=== PATIENT | female | born 1985 | race American Indian/Alaskan Native ===

== ENCOUNTER 2018-11-30 22:51 | Inpatient (IN) | payer OTHER ==
[2018-12-01 00:25] LABS: BUN/Creatinine Ratio 14; Blood Urea Nitrogen 15 mg/dL (7-17); Calcium 8.8 mg/dL (8.4-10.2)
[2018-12-01 00:26] LABS: Alanine Aminotransferase 97 units/L (7-56); Albumin 4.2 g/dL (3.9-5); Hemolysis Index 0
[2018-12-01] MEDS ORDERED: SODIUM CHLORIDE 0.9% 500 ML 500 ML ONE ×2 (00:53→09:26)
[2018-12-01 01:21] LABS: Red Blood Count 0.86 M/mm3 (3.65-5.03)
[2018-12-01 01:25] LABS: Hematocrit 4.8 % (30.3-42.9); Hemoglobin 1.4 gm/dl (10.1-14.3); Mean Corpuscular HGB Conc 29 % (30-34); Mean Corpuscular Volume 55 fl (79-97); Red Cell Distribution Width 21.5 % (13.2-15.2)
[2018-12-01 01:26] LABS: Platelet Count 168 K/mm3 (140-440)
[2018-12-01] MEDS ORDERED: SODIUM CHLORIDE 0.9% 500 ML 500 ML IV ONE ×2 (01:45→09:30)
[2018-12-01 02:15] LABS: Bacteria,Urine 2+ /HPF (Negative); Bilirubin,Urine NEG (Negative); Blood,Urine LG (Negative); Color,Urine Yellow (Yellow); Mucus,Urine FEW /HPF; Protein,Urine >500 mg/dL (Negative); Urobilinogen,Urine < 2.0 mg/dL (<2.0)
[2018-12-01 02:19] LABS: HCG Qualitative,Urine Negative (Negative)
--- NOTE | 2018-12-01 02:21 | Emergency Department Report ---
- General Chief complaint: Weakness Stated complaint: WEAKNESS/DIZZINESS/FEVER Time Seen by Provider: 11/30/18 23:38 Source: patient Mode of arrival: Ambulatory Limitations: No Limitations - History of Present Illness Initial comments: 33-year-old female with generalized weakness, worsening over the last 3 days. Patient only reports history of anemia, states has chronically heavy menstrual periods. Patient has been given prescriptions for iron pills previously, but has been noncompliant with the medication. Patient states she has never required a transfusion. However, patient and report that she has not been to a doctor in approx 11 yrs. The last time was when she gave to her son. Patient reports generalized weakness, shortness of breath with exertion, ice pica, dizziness. She states she has been having these symptoms for " a while" but became worse over the last few days. Patient currently on her period, normally has very heavy menstrual periods. Patient denies fever, abdominal pain and diarrhea. MD Complaint: generalized weakness, lack of energy -: days(s) (3) Location: generalized Severity: severe Consistency: constant Improves with: none Worsens with: none Associated Symptoms: loss of appetite, nausea/vomiting, shortness of breath. denies: chest pain, dark stools - Related Data Home Medications Medication Instructions Recorded Confirmed Last Taken No Known Home Medications [No 12/01/18 12/01/18 Unknown Reported Home Medications] Allergies Allergy/AdvReac Type Severity Reaction Status Date / Time amoxicillin Allergy Hives Verified 11/30/18 22:58 ED Review of Systems ROS: Stated complaint: WEAKNESS/DIZZINESS/FEVER Other details as noted in HPI Comment: All other systems reviewed and negative Constitutional: denies: chills, fever Respiratory: shortness of breath Cardiovascular: denies: chest pain Gastrointestinal: nausea, vomiting. denies: diarrhea, melena, hematochezia Genitourinary: abnormal menses ED Past Medical Hx - Past Medical History Previous Medical History?: Yes Additional medical history: anemia - Social History Smoking Status: Current Every Day Smoker - Medications Home Medications: Home Medications Medication Instructions Recorded Confirmed Last Taken Type No Known Home Medications [No 12/01/18 12/01/18 Unknown History Reported Home Medications] ED Physical Exam - General Limitations: No Limitations General appearance: alert, in no apparent distress - Head Head exam: Present: atraumatic, normocephalic - Eye Eye exam: Present: normal appearance - ENT ENT exam: Present: mucous membranes dry, other (tongue is pale) - Respiratory Respiratory exam: Present: normal lung sounds bilaterally. Absent: respiratory distress - Cardiovascular Cardiovascular Exam: Present: normal rhythm, tachycardia - GI/Abdominal GI/Abdominal exam: Present: soft, mass (firm mass palpated in suprapubic area, possible fibroid uterus). Absent: distended, tenderness - Extremities Exam Extremities exam: Present: normal inspection - Neurological Exam Neurological exam: Present: alert, oriented X3, CN II-XII intact. Absent: motor sensory deficit - Psychiatric Psychiatric exam: Present: normal affect, normal mood - Skin Skin exam: Present: warm, dry, pallor ED Course Vital Signs 11/30/18 11/30/18 12/01/18 23:08 23:52 00:00 Temperature 97.9 F Pulse Rate 113 H 99 H Respiratory 16 24 Rate Blood Pressure 90/30 92/33 110/45 Blood Pressure [Left] O2 Sat by Pulse 100 100 Oximetry 12/01/18 12/01/18 12/01/18 00:15 00:30 00:46 Temperature Pulse Rate 98 H 100 H 99 H Respiratory 22 14 25 H Rate Blood Pressure 82/45 82/45 105/47 Blood Pressure [Left] O2 Sat by Pulse 100 100 Oximetry 12/01/18 12/01/18 12/01/18 01:00 01:18 02:00 Temperature Pulse Rate 99 H Respiratory 22 18 Rate Blood Pressure 93/46 100/35 Blood Pressure [Left] O2 Sat by Pulse 95 98 Oximetry 12/01/18 12/01/18 12/01/18 02:15 02:20 02:30 Temperature 98.2 F Pulse Rate 93 H 99 H 96 H Respiratory 25 H 20 24 Rate Blood Pressure 98/43 107/59 107/59 Blood Pressure [Left] O2 Sat by Pulse 99 100 Oximetry 12/01/18 12/01/18 12/01/18 02:39 02:45 03:00 Temperature 98.2 F 98.2 F 98.5 F Pulse Rate 97 H 104 H 93 H Respiratory 12 20 22 Rate Blood Pressure 107/59 99/52 Blood Pressure 107/59 [Left] O2 Sat by Pulse 100 100 Oximetry 12/01/18 12/01/18 12/01/18 03:15 03:30 03:45 Temperature Pulse Rate 87 85 90 Respiratory 25 H 16 18 Rate Blood Pressure 97/57 102/55 92/48 Blood Pressure [Left] O2 Sat by Pulse 98 100 100 Oximetry 12/01/18 12/01/18 12/01/18 04:00 04:15 04:30 Temperature Pulse Rate 93 H 94 H 93 H Respiratory 14 18 22 Rate Blood Pressure 96/43 108/56 107/52 Blood Pressure [Left] O2 Sat by Pulse 100 100 100 Oximetry 12/01/18 12/01/18 12/01/18 04:40 04:45 05:00 Temperature 98.5 F Pulse Rate 94 H 93 H Respiratory 18 25 H Rate Blood Pressure 106/60 108/55 Blood Pressure [Left] O2 Sat by Pulse 100 95 Oximetry 12/01/18 12/01/18 12/01/18 05:15 05:30 05:45 Temperature Pulse Rate 90 85 85 Respiratory 16 12 12 Rate Blood Pressure 105/54 105/63 109/54 Blood Pressure [Left] O2 Sat by Pulse 99 100 100 Oximetry 12/01/18 12/01/18 12/01/18 06:00 06:15 06:26 Temperature 98.5 F Pulse Rate 82 80 80 Respiratory 24 15 15 Rate Blood Pressure 101/62 101/62 101/62 Blood Pressure [Left] O2 Sat by Pulse 100 100 100 Oximetry 12/01/18 12/01/18 12/01/18 06:31 07:25 07:30 Temperature Pulse Rate 86 81 75 Respiratory 21 15 25 H Rate Blood Pressure 108/49 108/49 103/55 Blood Pressure [Left] O2 Sat by Pulse 99 99 100 Oximetry 12/01/18 12/01/18 12/01/18 07:41 07:51 08:00 Temperature Pulse Rate 102 H 76 79 Respiratory 27 H 27 H 16 Rate Blood Pressure 103/55 115/62 117/68 Blood Pressure [Left] O2 Sat by Pulse 96 99 99 Oximetry 12/01/18 12/01/18 12/01/18 08:11 08:21 08:30 Temperature Pulse Rate 78 87 76 Respiratory 14 15 25 H Rate Blood Pressure 117/68 103/50 104/50 Blood Pressure [Left] O2 Sat by Pulse 100 93 99 Oximetry 12/01/18 12/01/18 12/01/18 08:41 08:51 09:00 Temperature Pulse Rate 78 73 72 Respiratory 19 15 18 Rate Blood Pressure 104/50 104/50 101/59 Blood Pressure [Left] O2 Sat by Pulse 100 100 100 Oximetry 12/01/18 12/01/18 12/01/18 09:11 09:21 09:30 Temperature Pulse Rate 71 82 70 Respiratory 22 20 16 Rate Blood Pressure 101/59 106/71 108/66 Blood Pressure [Left] O2 Sat by Pulse 100 96 Oximetry 12/01/18 12/01/18 12/01/18 09:41 09:49 09:50 Temperature 98.2 F Pulse Rate 77 71 74 Respiratory 12 13 14 Rate Blood Pressure 101/59 136/83 136/83 Blood Pressure [Left] O2 Sat by Pulse 96 100 97 Oximetry 12/01/18 12/01/18 12/01/18 10:01 10:04 10:10 Temperature 98.3 F Pulse Rate 72 82 75 Respiratory 15 14 13 Rate Blood Pressure 141/64 141/64 101/59 Blood Pressure [Left] O2 Sat by Pulse 100 100 100 Oximetry 12/01/18 12/01/18 12/01/18 10:21 10:30 10:41 Temperature Pulse Rate 72 74 73 Respiratory 19 19 12 Rate Blood Pressure 146/74 138/70 146/74 Blood Pressure [Left] O2 Sat by Pulse 100 100 100 Oximetry 12/01/18 12/01/18 12/01/18 10:51 11:09 11:11 Temperature Pulse Rate 72 87 84 Respiratory 18 17 Rate Blood Pressure 139/75 139/75 139/75 Blood Pressure [Left] O2 Sat by Pulse 100 94 Oximetry 12/01/18 11:20 Temperature Pulse Rate 71 Respiratory 21 Rate Blood Pressure 115/78 Blood Pressure [Left] O2 Sat by Pulse Oximetry ED Medical Decision Making - Lab Data Result diagrams: 12/02/18 09:34 12/02/18 05:05 - EKG Data -: EKG Interpreted by Ok EKG shows normal: sinus rhythm, axis, intervals, QRS complexes, ST-T waves Rate: tachycardia - EKG Data Interpretation: other (inferolateral T wave inversions) - Radiology Data Radiology results: report reviewed, image reviewed - Medical Decision Making 33 yo F w/ ongoing generalized weakness. Appears frail, pale. Blood pressure is low. On blood draw, blood appearance is thin and watery. Hemoglobin repeated multiple times, and found to be 1.3. Patient reports dysfunctional uterine bleeding w/ prolonged and heavy menstrual periods. On exam, patient have likely fibroid uterus. Blood transfusion ordered. Pt will be admitted to hospitalist, Dr Berkowitz. - Differential Diagnosis anemia, infection, uterine fibroids Critical Care Time: Yes Critical care time in (mins) excluding proc time.: 35 Critical care attestation.: If time is entered above; I have spent that time in minutes in the direct care of this critically ill patient, excluding procedure time. Critical Care Time: 35 minutes ED Disposition Clinical Impression: Iron deficiency anemia, Menorrhagia, Hypotension Disposition: -09 OP ADMIT IP TO THIS HOSP Is pt being admited?: Yes Condition: Stable Time of Disposition: 02:35
[2018-12-01 02:29] LABS: Hemoglobin 1.3 gm/dl (10.1-14.3); Red Blood Count 0.84 M/mm3 (3.65-5.03)
[2018-12-01 02:30] LABS: Hematocrit 4.8 % (30.3-42.9); Mean Corpuscular HGB Conc 28 % (30-34); Mean Corpuscular Volume 58 fl (79-97); Platelet Count 151 K/mm3 (140-440); Red Cell Distribution Width 21.6 % (13.2-15.2)
[2018-12-01] MEDS ORDERED: ONDANSETRON 4 MG/2 ML INJ IV PRN (02:59)
--- NOTE | 2018-12-01 03:07 | XRay Report ---
CHEST 1 VIEW 12/01/2018 2:38 AM INDICATION / CLINICAL INFORMATION: weakness, sob. COMPARISON: None available. FINDINGS: SUPPORT DEVICES: None. HEART / MEDIASTINUM: Borderline cardiomegaly. LUNGS / PLEURA: No significant pulmonary or pleural abnormality. No pneumothorax. ADDITIONAL FINDINGS: No significant additional findings. IMPRESSION: 1. Borderline cardiomegaly without acute pulmonary abnormality. Signer Name: Hai Erazo MD Signed: 12/01/2018 3:03 AM Workstation Name: [id number]
--- NOTE | 2018-12-01 03:15 | History and Physical Report ---
History of Present Illness Date of examination: 12/01/18 Date of admission: 12/01/18 Chief complaint: Generalized weakness History of present illness: 33-year-old -[place] female who is an ongoing smoker with history of menorrhagia who presents to [facility] ED with complaints of worsening generalized weakness over the past 3 days. Pt states that she is currently on her menstrual cycle, and it usually last for 2 weeks. While on her period she complains of heavy bleeding and the passing of large clots. She admits to taking iron supplements in the past, but has't seen a medical provider in over 11 years. She admits to increased fatigue, pending the past 3 days in bed (with the majority of the time spent sleeping), dizziness, shortness of breath with exertion, ice pica, nausea, and emesis x1. Past History Past Medical History: anemia, other (menorrhagia) Past Surgical History: No surgical history Social history: , Lives alone, smoking (current everyday smoker) Family history: no significant family history Medications and Allergies Allergies Allergy/AdvReac Type Severity Reaction Status Date / Time amoxicillin Allergy Hives Verified 11/30/18 22:58 Active Meds: Active Medications Acetaminophen (Tylenol) 650 mg PO Q4H PRN PRN Reason: Pain MILD(1-3)/Fever >100.5/ANDREWS Docusate Sodium (Colace) 100 mg PO BID MARTHA Ferrous Sulfate (Feosol) 325 mg PO QDAY [facility] Ferric Sodium Gluconate Complex 250 mg/ Sodium Chloride 120 mls @ 100 mls/hr IV ONCE ONE Stop: 12/01/18 04:01 Sodium Chloride (Nacl 0.9% 1000 Ml) 1,000 mls @ 75 mls/hr IV DIRECT MARTHA Levofloxacin/Dextrose (Levaquin 500mg/100ml) 500 mg in 100 mls @ 100 mls/hr IV Q24HR MARTHA; Protocol Stop: 12/04/18 09:59 Nicotine (Habitrol) 14 mg TD QDAY MARTHA Ondansetron HCl (Zofran) 4 mg IV Q8H PRN PRN Reason: Nausea And Vomiting Sodium Chloride (Sodium Chloride Flush Syringe 10 Ml) 10 ml IV BID MARTHA Sodium Chloride (Sodium Chloride Flush Syringe 10 Ml) 10 ml IV PRN PRN PRN Reason: LINE FLUSH Review of Systems All systems: negative Constitutional: fatigue, other (ice pica) Cardiovascular: shortness of breath Genitourinary Female: menorrhagia (with passing of large clots) Menstruation: currently menstrual, period heavy, menses 8 or > days Neurological: other (dizziness) Exam - Constitutional Vitals: Temp Pulse Resp BP Pulse Ox 98.2 F 104 H 20 107/59 100 12/01/18 02:45 12/01/18 02:45 12/01/18 02:45 12/01/18 02:45 12/01/18 02:39 Results - Labs CBC & Chem 7: 12/01/18 01:53 11/30/18 23:36 Labs: Laboratory Last Values WBC 5.1 K/mm3 (4.5-11.0) 12/01/18 01:53 RBC 0.84 M/mm3 (3.65-5.03) L 12/01/18 01:53 Hgb 1.3 gm/dl (10.1-14.3) L* 12/01/18 01:53 Hct 4.8 % (30.3-42.9) L* 12/01/18 01:53 MCV 58 fl (79-97) L 12/01/18 01:53 MCH 16 pg (28-32) L 12/01/18 01:53 MCHC 28 % (30-34) L 12/01/18 01:53 RDW 21.6 % (13.2-15.2) H 12/01/18 01:53 Plt Count 151 K/mm3 (140-440) 12/01/18 01:53 Lymph % (Auto) [employer] 12/01/18 00:32 [place] % (Auto) Juvenile [employer]ation Officer 12/01/18 00:32 Eos % (Auto) Juvenile Probation Officer 12/01/18 00:32 Baso % (Auto) Juvenile Probation Officer 12/01/18 00:32 Lymph # Juvenile Probation Officer 12/01/18 00:32 [place] # Juvenile Probation Officer 12/01/18 00:32 Eos # Juvenile Probation Officer 12/01/18 00:32 Baso # Juvenile Probation Officer 12/01/18 00:32 Seg Neutrophils % Juvenile Probation Officer 12/01/18 00:32 Seg Neutrophils # Juvenile Probation Officer 12/01/18 00:32 Sodium 132 mmol/L (137-145) L 11/30/18 23:36 Potassium 3.9 mmol/L (3.6-5.0) 11/30/18 23:36 Chloride 97.1 mmol/L (98-107) L 11/30/18 23:36 Carbon Dioxide 13 mmol/L (22-30) L 11/30/18 23:36 26 mmol/L 11/30/18 23:36 BUN 15 mg/dL (7-17) 11/30/18 23:36 1.1 mg/dL (0.7-1.2) 11/30/18 23:36 Estimated GFR > 60 ml/min 11/30/18 23:36 14 % 11/30/18 23:36 Glucose 105 mg/dL (65-100) H 11/30/18 23:36 Calcium 8.8 mg/dL (8.4-10.2) 11/30/18 23:36 Magnesium 3.00 mg/dL (1.7-2.3) H 11/30/18 23:36 0.90 mg/dL (0.1-1.2) 11/30/18 23:36 AST 127 units/L (5-40) H 11/30/18 23:36 ALT 97 units/L (7-56) H 11/30/18 23:36 94 units/L (35-129) 11/30/18 23:36 7.3 g/dL (6.3-8.2) 11/30/18 23:36 4.2 g/dL (3.9-5) 11/30/18 23:36 1.4 % 11/30/18 23:36 HCG, Qual Negative (Negative) 12/01/18 01:22 Yellow (Yellow) 12/01/18 01:34 Slightly-cloudy (Clear) 12/01/18 01:34 5.0 (5.0-7.0) 12/01/18 01:34 Ur Specific [place] 1.012 (1.003-1.030) 12/01/18 01:34 >500 mg/dL (Negative) 12/01/18 01:34 Neg mg/dL (Negative) 12/01/18 01:34 Neg mg/dL (Negative) 12/01/18 01:34 Lg (Negative) 12/01/18 01:34 Neg (Negative) 12/01/18 01:34 Neg (Negative) 12/01/18 01:34 < 2.0 mg/dL (<2.0) 12/01/18 01:34 Ur Leukocyte Esterase Neg (Negative) 12/01/18 01:34 13.0 /HPF (0.0-6.0) H 12/01/18 01:34 61.0 /HPF (0.0-6.0) 12/01/18 01:34 U Epithel Cells (Auto) 2.0 /HPF (0-13.0) 12/01/18 01:34 2+ /HPF (Negative) 12/01/18 01:34 Few /HPF 12/01/18 01:34 Urine HCG, Qual Negative (Negative) 12/01/18 01:34 Blood Type B POSITIVE 12/01/18 Unknown Antibody Screen Negative 12/01/18 Unknown Crossmatch See Detail 12/01/18 Unknown - Imaging and Cardiology Imaging and Cardiology: CXR: FINDINGS: SUPPORT DEVICES: None. HEART / MEDIASTINUM: Borderline cardiomegaly. LUNGS / PLEURA: No significant pulmonary or pleural abnormality. No pneumothorax. ADDITIONAL FINDINGS: No significant additional findings. IMPRESSION: 1. Borderline cardiomegaly without acute pulmonary abnormality. US Pelvis/ Transvaginal: FINDINGS: UTERUS: Present. - Size in cm (if present): 13.0 x 7.8 x 8.8. - E ndometrial Complex (if present): No significant abnormality.. Thickness in cm (if measured) = 0.5 - Mass lesions: There is a 6.8 x 5.2 x 6.0 cm posterior fibroid and a 5.1 x 4.2 x 4.7 cm anterior fibroid in the uterine fundus. - Additional findings: None. RIGHT ADNEXA: There is a 4.0 cm simple cyst in the right ovary, probable dominant follicle not requiring follow-up. Normal color Doppler blood flow. LEFT ADNEXA: The left ovary was not definitely visualized. There is no left adnexal mass. URINARY BLADDER: No significant abnormality. FREE FLUID: None. ADDITIONAL FINDINGS: None. IMPRESSION: 1. Multiple uterine fibroids. 2. Normal Doppler flow in the right ovary. 3. The left ovary was not definitely visualized but there is no left adnexal mass lesion. Assessment and Plan Assessment and plan: 33-year-old -[place] female who is an ongoing smoker with history of menorrhagia who presents to [facility] ED with complaints of menorrhagia and worsening generalized weakness over the past 3 days. Anemia -Severe -Hemoglobin on admission 1.3 -Receiving transfusion -No signs/symptoms of active bleeding -Continue to monitor hemoglobin -Transfuse as needed -Hematology consulted Urinary tract infection -Urine WBC >8 -Urine culture pending -Start on IV Abx Elevated Liver Enzymes -Likely due to anemia -Will continue to monitor Hx menorrhagia -Currently on menstrual cycle - Menstrual cycle lasting 10-14 days (over the past 7-8 months) -US pelvis/ transvaginal showed Multiple uterine fibroids; Normal Doppler flow in the right ovary; The left ovary was not definitely visualized but there is no left adnexal mass lesion. -CARDROOM ATTENDANT consult pending Hyponatremia -Na on admission 132 -Slowly correct Na with IVF -Continue to monitor replete prn Tobacco abuse -Current every day smoker -Counseled for cessation -Nicotine patch when necessary DVT PPX -On SCD's Advance Directives: No VTE prophylaxis?: Mechanical Plan of care discussed with patient/family: Yes
--- NOTE | 2018-12-01 03:35 | Ultrasound Report ---
ULTRASOUND PELVIS INDICATION / CLINICAL INFORMATION: vag bleeding. TECHNIQUE: Transabdominal. Duplex Color Doppler used: Yes. COMPARISON: None available FINDINGS: UTERUS: Present. - Size in cm (if present): 13.0 x 7.8 x 8.8. - Endometrial Complex (if present): No significant abnormality.. Thickness in cm (if measured) = 0.5 - Mass lesions: There is a 6.8 x 5.2 x 6.0 cm posterior fibroid and a 5.1 x 4.2 x 4.7 cm anterior fib roid in the uterine fundus. - Additional findings: None. RIGHT ADNEXA: There is a 4.0 cm simple cyst in the right ovary, probable dominant follicle not requir ing follow-up. Normal color Doppler blood flow. LEFT ADNEXA: The left ovary was not definitely visualized. There is no left adnexal mass. URINARY BLADDER: No significant abnormality. FREE FLUID: None. ADDITIONAL FINDINGS: None. IMPRESSION: 1. Multiple uterine fibroids. 2. Normal Doppler flow in the right ovary. 3. The left ovary was not definitely visualized but there is no left adnexal mass lesion. Signer Name: Hai Erazo MD Signed: 12/01/2018 3:31 AM Workstation Name: [id number]
[2018-12-01] MEDS ORDERED: SODIUM FERRIC GLUCON/SUCRO 250 MG in SODIUM CHLORIDE 0.9% 100 ML IV ONE (04:00)
[2018-12-01 06:07] LABS: Eosinophils % (Manual) 0 % (0.0-4.3); Total Cells Counted 100
[2018-12-01 06:08] LABS: Anisocytosis 1+; Hypochromasia 3+; Large Platelets Few; Platelet Estimate Consistent w Auto; Poikilocytosis 1+; Schistocytes Few
[2018-12-01 06:14] LABS: Anisocytosis 1+; Basophils % (Manual) 0 % (0.0-1.8); Eosinophils % (Manual) 0 % (0.0-4.3); Hypochromasia 3+; Platelet Estimate Consistent w Auto; Poikilocytosis Few; Schistocytes 1+; Total Cells Counted 100
--- NOTE | 2018-12-01 08:33 | Event Note ---
Date: 12/01/18 [id number]
[2018-12-01 09:33] LABS: % Iron Saturation 32.12 %
[2018-12-01 09:35] LABS: Iron 157 ug/dL (37-170); Total Iron Binding Capacity 482 mcg/dL (250-450)
[2018-12-01 10:40] LABS: Hematocrit 10.4 % (30.3-42.9); Hemoglobin 3.4 gm/dl (10.1-14.3)
[2018-12-01] MEDS: NICOTINE 14 MG/24 HR PATCH TD SCH (16:06)
[2018-12-01] MEDS: DOCUSATE SODIUM 100 MG CAP PO SCH ×2 (16:06→21:30)
[2018-12-01] MEDS: FERROUS SULFATE 325 MG TAB PO SCH (16:07)
[2018-12-01] MEDS: MULTIVITAMINS ,THERAPEUTIC TAB PO SCH (16:07)
--- NOTE | 2018-12-01 18:23 | Consultation ---
History of Present Illness - Reason for Consult Consult date: 12/01/18 menorrhagia - History of Present Illness Patient is a 33 year old female , LMP 2 weeks ago who was admitted early this AM for symptomatic anemia.She presented to the ER during the night complaining of shortness of breath, weakness, dizziness for 5 days. She says that she has been feeling like this for weeks now, but her symptoms got severe last night to the point where she could not stand up. She has not see any doctor in 11 years. She denies any chronic medical condition. Her initial H/H was 1.3/4.8 (at 1:30 am), repeat 1.2/4.8 (1:50 am). She was transfused 3 units of PRBCs. Current H/H: 3.4/10.4 (9 am). She is getting her 4th unit right now. She says that her period comes every 2 weeks and last about 2 weeks, and she has been bleeding almost every day. She has not seen a collar separator. Past medical history: denies. Past surgical history: C/section x 2. Allergy: PCN Social: + smoking, denies alcohol or grug abuse. 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 Obs Hx: C/section x 2, one for demise. ROS: as above. Exam: Chest: CTA B/L. Abdomen: soft, no tenderness. Pelvic: deferred. Pelvic sonogram: Uterus measures 13 x 8.8 x 7.8 cm, stripe 5 mm, mutiple myomae and the largest one measures 6.8 x 5.5 cm, right ovarian cyst 4 cm. Assessment/Plan: 1. Symptomatic anemia. Patient is being transfused to bring her Hb to a stable level. 2. Symptomatic myomae. Patient was told that she needs to follow up with fire investigation manager as soon as she is discharged home. She will need endometrial biopsy, then definitive treatment will be discussed with her. Please consult fire investigation manager as needed. Please have patient set up an appointment before going home at [phone]. Past History Past Medical History: anemia, other (menorrhagia) Past Surgical History: No surgical history Social history: , Lives alone, smoking (current everyday smoker) Family history: no significant family history Medications and Allergies Allergies Allergy/AdvReac Type Severity Reaction Status Date / Time amoxicillin Allergy Hives Verified 11/30/18 22:58 Home Medications Medication Instructions Recorded Confirmed Last Taken Type No Known Home Medications [No 12/01/18 12/01/18 Unknown History Reported Home Medications] Active Meds: Active Medications Acetaminophen (Tylenol) 650 mg PO Q4H PRN PRN Reason: Pain MILD(1-3)/Fever >100.5/ADNREWS Docusate Sodium (Colace) 100 mg PO BID ON LICENSE OF [facility] Last Admin: 12/01/18 16:06 Dose: 100 mg Documented by: Ferrous Sulfate (Feosol) 325 mg PO QDAY ON LICENSE OF [facility] Last Admin: 12/01/18 16:07 Dose: 325 mg Documented by: Sodium Chloride (Nacl 0.9% 1000 Ml) 1,000 mls @ 75 mls/hr IV DIRECT ON LICENSE OF [facility] Levofloxacin/Dextrose (Levaquin 500mg/100ml) 500 mg in 100 mls @ 100 mls/hr IV Q24HR ON LICENSE OF [facility]; Protocol Stop: 12/04/18 09:59 Multivitamins (Theragran Tab) 1 each PO QDAY ON LICENSE OF [facility] Last Admin: 12/01/18 16:07 Dose: 1 each Documented by: Nicotine (Habitrol) 14 mg TD QDAY ON LICENSE OF [facility] Last Admin: 12/01/18 16:06 Dose: 14 mg Documented by: Ondansetron HCl (Zofran) 4 mg IV Q8H PRN PRN Reason: Nausea And Vomiting Sodium Chloride (Sodium Chloride Flush Syringe 10 Ml) 10 ml IV BID ON LICENSE OF [facility] Sodium Chloride (Sodium Chloride Flush Syringe 10 Ml) 10 ml IV PRN PRN PRN Reason: LINE FLUSH Exam - Constitutional Vitals: Temp Pulse Resp BP Pulse Ox 97.7 F 69 19 103/59 100 12/01/18 16:51 12/01/18 16:51 12/01/18 16:51 12/01/18 17:10 12/01/18 16:51 Results - Labs CBC & Chem 7: 12/01/18 09:39 11/30/18 23:36 Labs: Abnormal lab results 11/30/18 12/01/18 12/01/18 Range/Units 23:36 00:32 01:34 RBC 0.86 L (3.65-5.03) M/mm3 Hgb 1.4 L* (10.1-14.3) gm/dl Hct 4.8 L* (30.3-42.9) % MCV 55 L (79-97) fl MCH 16 L (28-32) pg MCHC 29 L (30-34) % RDW 21.5 H (13.2-15.2) % Seg Neuts % (Manual) 84.0 H (40.0-70.0) % Lymphocytes % (Manual) 13.0 L (13.4-35.0) % Nucleated RBC % (0.0-0.9) % Lymphocytes # (Manual) 0.7 L (1.2-5.4) K/mm3 Sodium 132 L (137-145) mmol/L Chloride 97.1 L (98-107) mmol/L Carbon Dioxide 13 L (22-30) mmol/L Glucose 105 H (65-100) mg/dL Magnesium 3.00 H (1.7-2.3) mg/dL TIBC (250-450) mcg/dL Ferritin (13.0-400.0) ng/mL AST 127 H (5-40) units/L ALT 97 H (7-56) units/L Vitamin B12 (211-911) pg/mL Urine WBC (Auto) 13.0 H (0.0-6.0) /HPF Crossmatch 12/01/18 12/01/18 12/01/18 Range/Units 01:53 08:54 08:54 RBC 0.84 L (3.65-5.03) M/mm3 Hgb 1.3 L* (10.1-14.3) gm/dl Hct 4.8 L* (30.3-42.9) % MCV 58 L (79-97) fl MCH 16 L (28-32) pg MCHC 28 L (30-34) % RDW 21.6 H (13.2-15.2) % Seg Neuts % (Manual) 79.0 H (40.0-70.0) % Lymphocytes % (Manual) (13.4-35.0) % Nucleated RBC % 2.0 H (0.0-0.9) % Lymphocytes # (Manual) 1.0 L (1.2-5.4) K/mm3 Sodium (137-145) mmol/L Chloride (98-107) mmol/L Carbon Dioxide (22-30) mmol/L Glucose (65-100) mg/dL Magnesium (1.7-2.3) mg/dL TIBC 482 H 495 H (250-450) mcg/dL Ferritin (13.0-400.0) ng/mL AST (5-40) units/L ALT (7-56) units/L Vitamin B12 (211-911) pg/mL Urine WBC (Auto) (0.0-6.0) /HPF Crossmatch 12/01/18 12/01/18 12/01/18 Range/Units 08:54 08:54 09:39 RBC (3.65-5.03) M/mm3 Hgb 3.4 L* (10.1-14.3) gm/dl Hct 10.4 L* (30.3-42.9) % MCV (79-97) fl MCH (28-32) pg MCHC (30-34) % RDW (13.2-15.2) % Seg Neuts % (Manual) (40.0-70.0) % Lymphocytes % (Manual) (13.4-35.0) % Nucleated RBC % (0.0-0.9) % Lymphocytes # (Manual) (1.2-5.4) K/mm3 Sodium (137-145) mmol/L Chloride (98-107) mmol/L Carbon Dioxide (22-30) mmol/L Glucose (65-100) mg/dL Magnesium (1.7-2.3) mg/dL TIBC (250-450) mcg/dL Ferritin 2.9 L (13.0-400.0) ng/mL AST (5-40) units/L ALT (7-56) units/L Vitamin B12 1048 H (211-911) pg/mL Urine WBC (Auto) (0.0-6.0) /HPF Crossmatch 12/01/18 Range/Units Unknown RBC (3.65-5.03) M/mm3 Hgb (10.1-14.3) gm/dl Hct (30.3-42.9) % MCV (79-97) fl MCH (28-32) pg MCHC (30-34) % RDW (13.2-15.2) % Seg Neuts % (Manual) (40.0-70.0) % Lymphocytes % (Manual) (13.4-35.0) % Nucleated RBC % (0.0-0.9) % Lymphocytes # (Manual) (1.2-5.4) K/mm3 Sodium (137-145) mmol/L Chloride (98-107) mmol/L Carbon Dioxide (22-30) mmol/L Glucose (65-100) mg/dL Magnesium (1.7-2.3) mg/dL TIBC (250-450) mcg/dL Ferritin (13.0-400.0) ng/mL AST (5-40) units/L ALT (7-56) units/L Vitamin B12 (211-911) pg/mL Urine WBC (Auto) (0.0-6.0) /HPF Crossmatch See Detail
[2018-12-01] MEDS: ACETAMINOPHEN 325 MG TAB PO PRN (21:11)
--- NOTE | 2018-12-01 22:08 | Consultation ---
REFERRED BY: Dr. Berkowitz. REASON FOR CONSULTATION: Severe anemia. HISTORY OF PRESENT ILLNESS: I saw the patient, a 33-year-old female in the medical floor. The patient has history of anemia. She has not been to a physician for more than 11 years. She has been having progressive weakness. She has heavy periods for many months. It lasted for 2 weeks. It has lots of clots. As she felt weakness, dizziness and has shortness of breath, she came to the hospital. Hemoglobin was found to be 1.3. Blood transfusion has been given. IV iron has been given. I have been asked to evaluate the patient for this. At this time, no headache, no visual disturbances, no ear discharge, no chest pain, no shortness of breath at rest, no vomiting. She has history of exertional shortness of breath and dizziness. No abdominal pain. No hematemesis. No hematochezia. History of alcohol use is present, history of smoking present. Advised to quit the same. As per the notes, she has a large fibroid. PAST MEDICAL HISTORY: Anemia. PAST SURGICAL HISTORY: None. SOCIAL HISTORY: , lives alone. History of smoking and alcohol present. FAMILY HISTORY: Noncontributory. ALLERGIES: AMOXICILLIN. MEDICATIONS: Includes Colace, ferrous sulfate, Levaquin. PHYSICAL EXAMINATION: VITAL SIGNS: Temperature 98, pulse 80, respirations 15, BP 101/62. HEENT: Pallor present, no icterus. NECK: No neck lymph nodes. HEART: S1, S2. LUNGS: Clear to auscultation anteriorly. ABDOMEN: Soft, no guarding. EXTREMITIES: No calf tenderness. NEUROLOGIC: Alert, awake, oriented. LABORATORY DATA: White cell 5, hemoglobin , MCV 58, platelet 151. Potassium 3.9, creatinine 1.1, calcium 8.8, bilirubin 0.9. RADIOLOGY: Ultrasound abdomen shows 6.8 cm fibroid and a 5.1 cm fibroid. ASSESSMENT AND PLAN: 1. Microcytic anemia, severe, transfusion given, intravenous iron given. We will add multivitamin and then fibroid. WARPING MILL OPERATOR evaluation will help. 2. Symptoms secondary to severe anemia. 3. I will follow the patient during inpatient stay. JOB# [id number] NM/NTS
[2018-12-01 23:12] LABS: Mean Corpuscular HGB Conc 32 % (30-34); Mean Corpuscular Volume 78 fl (79-97); Platelet Count 135 K/mm3 (140-440); Red Blood Count 2.18 M/mm3 (3.65-5.03)
[2018-12-01 23:18] LABS: Red Cell Distribution Width 28.5 % (13.2-15.2)
[2018-12-01 23:19] LABS: Hematocrit 16.9 % (30.3-42.9); Hemoglobin 5.5 gm/dl (10.1-14.3)
[2018-12-02 00:56] LABS: Eosinophils % (Manual) 0 % (0.0-4.3); Total Cells Counted 100
[2018-12-02 00:57] LABS: Hypochromasia 1+
[2018-12-02 00:58] LABS: Anisocytosis 1+; Ovalocytes Few; Schistocytes Few
[2018-12-02 00:59] LABS: Platelet Estimate Consistent w Auto; Tear Drop Cells Rare
[2018-12-02 05:43] LABS: Alanine Aminotransferase 204 units/L (7-56); Albumin 3.5 g/dL (3.9-5); BUN/Creatinine Ratio 13; Blood Urea Nitrogen 8 mg/dL (7-17); Hemolysis Index 3
[2018-12-02] MEDS: ACETAMINOPHEN 325 MG TAB PO PRN (05:45)
[2018-12-02] MEDS: SODIUM CHLORIDE 0.9% 1000 ML 1,000 ML IV SCH ×2 (07:13→22:48)
--- NOTE | 2018-12-02 07:25 | Hem/Onc Progress Note ---
Assessment and Plan 1. Microcytic anemia, severe, transfusion given, intravenous iron given. We will add multivitamin and then fibroid. AIRWORTHINESS SAFETY INSPECTOR evaluation will help. 2. Symptoms secondary to severe anemia. 3. I will follow the patient during inpatient stay. - Patient Problems (1) Iron deficiency anemia Current Visit: Yes Status: Acute Subjective Date of service: 12/02/18 Principal diagnosis: ADOLPH Interval history: heavy cycles Objective - Exam Narrative Exam: Pain - none General appearance - comfortable Performance status limited self care Eyes - no icterus, ENT - no bleeding LNs cervical not palpable Neck - no LN Respiratory Normal Breath sounds - CTA CVS S1 S2 + Extremities no calf tenderness General GI Soft Rectal deferred female - deferred Skin warm Musculoskeletal moves extremities Neurologically awake - oriented - Constitutional Vitals: Last Vital Signs Temp 98.1 F 12/02/18 05:31 Pulse 53 L 12/02/18 05:31 Resp 18 12/02/18 05:45 BP 111/67 12/02/18 05:31 Pulse Ox 100 12/02/18 05:31 - Labs Lab Results: Laboratory Results - last 24 hr 12/01/18 12/01/18 12/01/18 08:54 08:54 08:54 WBC RBC Hgb Hct MCV MCH MCHC RDW Plt Count Add Manual Diff Total Counted Seg Neuts % (Manual) Band Neutrophils % Lymphocytes % (Manual) Reactive Lymphs % (Man) Monocytes % (Manual) Eosinophils % (Manual) Basophils % (Manual) Metamyelocytes % Myelocytes % Promyelocytes % Blast Cells % Nucleated RBC % Seg Neutrophils # Man Band Neutrophils # Lymphocytes # (Manual) Abs React Lymphs (Man) Monocytes # (Manual) Eosinophils # (Manual) Basophils # (Manual) Metamyelocytes # Myelocytes # Promyelocytes # Blast Cells # WBC Morphology Hypersegmented Neuts Hyposegmented Neuts Hypogranular Neuts Smudge Cells Toxic Granulation Toxic Vacuolation Dohle Bodies Pelger-Huet Anomaly Daniel Rods Platelet Estimate Clumped Platelets Plt Clumps, EDTA Large Platelets Giant Platelets Platelet Satelliting Plt Morphology Comment RBC Morphology Dimorphic RBCs Polychromasia Hypochromasia Poikilocytosis Anisocytosis Microcytosis Macrocytosis Spherocytes Pappenheimer Bodies Sickle Cells Target Cells Tear Drop Cells Ovalocytes Helmet Cells Chan-[place] Bodies Cook Sta Rings May Cells Bite Cells Crenated Cell Elliptocytes Acanthocytes (Spur) Rouleaux Hemoglobin C Crystals Schistocytes Malaria parasites Max Bodies Hem Pathologist Commnt Sodium Potassium Chloride Carbon Dioxide Anion Gap BUN Creatinine Estimated GFR BUN/Creatinine Ratio Glucose Calcium Iron 157 159 TIBC 482 H 495 H % Saturation 32.12 Transferrin 352 Ferritin Total Bilirubin AST ALT Alkaline Phosphatase Total Protein Albumin Albumin/Globulin Ratio Vitamin B12 1048 H TSH Blood Type Antibody Screen Crossmatch 12/01/18 12/01/18 12/01/18 08:54 08:54 08:54 WBC RBC Hgb Hct MCV MCH MCHC RDW Plt Count Add Manual Diff Total Counted Seg Neuts % (Manual) Band Neutrophils % Lymphocytes % (Manual) Reactive Lymphs % (Man) Monocytes % (Manual) Eosinophils % (Manual) Basophils % (Manual) Metamyelocytes % Myelocytes % Promyelocytes % Blast Cells % Nucleated RBC % Seg Neutrophils # Man Band Neutrophils # Lymphocytes # (Manual) Abs React Lymphs (Man) Monocytes # (Manual) Eosinophils # (Manual) Basophils # (Manual) Metamyelocytes # Myelocytes # Promyelocytes # Blast Cells # WBC Morphology Hypersegmented Neuts Hyposegmented Neuts Hypogranular Neuts Smudge Cells Toxic Granulation Toxic Vacuolation Dohle Bodies Pelger-Huet Anomaly Daniel Rods Platelet Estimate Clumped Platelets Plt Clumps, EDTA Large Platelets Giant Platelets Platelet Satelliting Plt Morphology Comment RBC Morphology Dimorphic RBCs Polychromasia Hypochromasia Poikilocytosis Anisocytosis Microcytosis Macrocytosis Spherocytes Pappenheimer Bodies Sickle Cells Target Cells Tear Drop Cells Ovalocytes Helmet Cells Chan-[place] Bodies Cook Sta Rings Jessica Cells Bite Cells Crenated Cell Elliptocytes Acanthocytes (Spur) Rouleaux Hemoglobin C Crystals Schistocytes Malaria parasites Max Bodies Hem Pathologist Commnt Sodium Potassium Chloride Carbon Dioxide Anion Gap BUN Creatinine Estimated GFR BUN/Creatinine Ratio Glucose Calcium Iron TIBC % Saturation Transferrin 339 Ferritin 2.9 L Total Bilirubin AST ALT Alkaline Phosphatase Total Protein Albumin Albumin/Globulin Ratio Vitamin B12 TSH 2.220 Blood Type Antibody Screen Crossmatch 12/01/18 12/01/18 12/01/18 09:39 22:33 Unknown WBC 5.3 RBC 2.18 L Hgb 3.4 L* 5.5 L* Hct 10.4 L* 16.9 L* D MCV 78 L MCH 25 L MCHC 32 RDW 28.5 H Plt Count 135 L Add Manual Diff Complete Total Counted 100 Seg Neuts % (Manual) 73.0 H Band Neutrophils % 0 Lymphocytes % (Manual) 24.0 Reactive Lymphs % (Man) 0 Monocytes % (Manual) 2.0 Eosinophils % (Manual) 0 Basophils % (Manual) 1.0 Metamyelocytes % 0 Myelocytes % 0 Promyelocytes % 0 Blast Cells % 0 Nucleated RBC % 2.0 H Seg Neutrophils # Man 3.9 Band Neutrophils # 0.0 Lymphocytes # (Manual) 1.3 Abs React Lymphs (Man) 0.0 Monocytes # (Manual) 0.1 Eosinophils # (Manual) 0.0 Basophils # (Manual) 0.1 Metamyelocytes # 0.0 Myelocytes # 0.0 Promyelocytes # 0.0 Blast Cells # 0.0 WBC Morphology Not Reportable Hypersegmented Neuts Not Reportable Hyposegmented Neuts Not Reportable Hypogranular Neuts Not Reportable Smudge Cells Not Reportable Toxic Granulation Not Reportable Toxic Vacuolation Not Reportable Dohle Bodies Not Reportable Pelger-Huet Anomaly Not Reportable Daniel Rods Not Reportable Platelet Estimate Consistent w auto Clumped Platelets Not Reportable Plt Clumps, EDTA Not Reportable Large Platelets Not Reportable Giant Platelets Not Reportable Platelet Satelliting Not Reportable Plt Morphology Comment Not Reportable RBC Morphology Not Reportable Dimorphic RBCs Not Reportable Polychromasia Not Reportable Hypochromasia 1+ Poikilocytosis Not Reportable Anisocytosis 1+ Microcytosis Not Reportable Macrocytosis Not Reportable Spherocytes Not Reportable Pappenheimer Bodies Not Reportable Sickle Cells Not Reportable Target Cells Not Reportable Tear Drop Cells Rare Ovalocytes Few Helmet Cells Not Reportable Chan-[place] Bodies Not Reportable Cook Sta Rings Not Reportable May Cells Not Reportable Bite Cells Not Reportable Crenated Cell Not Reportable Elliptocytes Not Reportable Acanthocytes (Spur) Not Reportable Rouleaux Not Reportable Hemoglobin C Crystals Not Reportable Schistocytes Few Malaria parasites Not Reportable Max Bodies Not Reportable Hem Pathologist Commnt No Sodium Potassium Chloride Carbon Dioxide Anion Gap BUN Creatinine Estimated GFR BUN/Creatinine Ratio Glucose Calcium Iron TIBC % Saturation Transferrin Ferritin Total Bilirubin AST ALT Alkaline Phosphatase Total Protein Albumin Albumin/Globulin Ratio Vitamin B12 TSH Blood Type B POSITIVE Antibody Screen Negative Crossmatch See Detail 12/02/18 05:05 WBC RBC Hgb Hct MCV MCH MCHC RDW Plt Count Add Manual Diff Total Counted Seg Neuts % (Manual) Band Neutrophils % Lymphocytes % (Manual) Reactive Lymphs % (Man) Monocytes % (Manual) Eosinophils % (Manual) Basophils % (Manual) Metamyelocytes % Myelocytes % Promyelocytes % Blast Cells % Nucleated RBC % Seg Neutrophils # Man Band Neutrophils # Lymphocytes # (Manual) Abs React Lymphs (Man) Monocytes # (Manual) Eosinophils # (Manual) Basophils # (Manual) Metamyelocytes # Myelocytes # Promyelocytes # Blast Cells # WBC Morphology Hypersegmented Neuts Hyposegmented Neuts Hypogranular Neuts Smudge Cells Toxic Granulation Toxic Vacuolation Dohle Bodies Pelger-Huet Anomaly Daniel Rods Platelet Estimate Clumped Platelets Plt Clumps, EDTA Large Platelets Giant Platelets Platelet Satelliting Plt Morphology Comment RBC Morphology Dimorphic RBCs Polychromasia Hypochromasia Poikilocytosis Anisocytosis Microcytosis Macrocytosis Spherocytes Pappenheimer Bodies Sickle Cells Target Cells Tear Drop Cells Ovalocytes Helmet Cells Chan-[place] Bodies Cook Sta Rings Jessica Cells Bite Cells Crenated Cell Elliptocytes Acanthocytes (Spur) Rouleaux Hemoglobin C Crystals Schistocytes Malaria parasites Max Bodies Hem Pathologist Commnt Sodium 136 L Potassium 3.3 L Chloride 107.2 H Carbon Dioxide 21 L D Anion Gap 11 BUN 8 Creatinine 0.6 L Estimated GFR > 60 BUN/Creatinine Ratio 13 Glucose 106 H Calcium 8.0 L Iron TIBC % Saturation Transferrin Ferritin Total Bilirubin 3.00 H AST 244 H ALT 204 H Alkaline Phosphatase 119 Total Protein 5.9 L Albumin 3.5 L Albumin/Globulin Ratio 1.5 Vitamin B12 TSH Blood Type Antibody Screen Crossmatch Medications & Allergies - Medications Allergies/Adverse Reactions: Allergies amoxicillin Allergy (Verified 11/30/18 22:58) Hives Home Medications: Home Medications Medication Instructions Recorded Confirmed Last Taken Type No Known Home Medications [No 12/01/18 12/01/18 Unknown History Reported Home Medications] Active Medications: Generic Name Dose Route Start Last Admin Trade Name Freq PRN Reason Stop Dose Admin Acetaminophen 650 mg 12/01/18 02:59 12/02/18 05:45 Tylenol PO 650 mg Q4H PRN Administration Pain MILD(1-3)/Fever >100.5/ANDREWS Docusate Sodium 100 mg 12/01/18 10:00 12/01/18 21:30 Colace PO 100 mg BID MARTHA Administration Ferrous Sulfate 325 mg 12/01/18 10:00 12/01/18 16:07 Feosol PO 325 mg QDAY MARTHA Administration Sodium Chloride 1,000 mls @ 75 mls/hr 12/01/18 03:00 12/02/18 07:13 Nacl 0.9% 1000 Ml IV 75 mls/hr DIRECT MARTHA Administration Levofloxacin/Dextrose 500 mg in 100 mls @ 100 mls/hr 12/01/18 10:00 12/01/18 21:29 Levaquin 500mg/100ml IV 12/04/18 09:59 100 mls/hr Q24HR MARTHA Administration Protocol Multivitamins 1 each 12/01/18 10:00 12/01/18 16:07 Theragran Tab PO 1 each QDAY MARTHA Administration Nicotine 14 mg 12/01/18 10:00 12/01/18 16:06 Habitrol TD 14 mg QDAY MARTHA Administration Ondansetron HCl 4 mg 12/01/18 02:59 Zofran IV Q8H PRN Nausea And Vomiting Sodium Chloride 10 ml 12/01/18 10:00 12/01/18 22:49 Sodium Chloride Flush Syringe 10 Ml IV Not Given BID MARTHA Sodium Chloride 10 ml 12/01/18 02:59 12/01/18 22:48 Sodium Chloride Flush Syringe 10 Ml IV 10 ml PRN PRN Administration LINE FLUSH
[2018-12-02] MEDS ORDERED: SODIUM CHLORIDE 0.9% 500 ML 500 ML IV NR (09:16)
--- NOTE | 2018-12-02 09:16 | Event Note ---
Date: 12/01/18 patient seen and examined getting PRBc transfusion, c/o generalized weakness, but no chest pain cont current mx and plan
[2018-12-02] MEDS ORDERED: SODIUM FERRIC GLUCON/SUCRO 125 MG in SODIUM CHLORIDE 0.9% 100 ML IV ONE (09:30)
[2018-12-02] MEDS: MULTIVITAMINS ,THERAPEUTIC TAB PO SCH (09:41)
[2018-12-02] MEDS: NICOTINE 14 MG/24 HR PATCH TD SCH (09:42)
[2018-12-02] MEDS: DOCUSATE SODIUM 100 MG CAP PO SCH ×2 (09:47→21:10)
[2018-12-02 09:57] LABS: Mean Corpuscular HGB Conc 32 % (30-34); Mean Corpuscular Volume 77 fl (79-97); Platelet Count 105 K/mm3 (140-440); Red Blood Count 1.96 M/mm3 (3.65-5.03)
[2018-12-02 10:18] LABS: Red Cell Distribution Width 28.6 % (13.2-15.2)
[2018-12-02 10:21] LABS: Hematocrit 15.1 % (30.3-42.9); Hemoglobin 4.8 gm/dl (10.1-14.3)
[2018-12-02] MEDS: FERROUS SULFATE 325 MG TAB PO SCH (10:54)
--- NOTE | 2018-12-02 11:48 | Progress Note ---
Assessment and Plan Severe symptomatic Anemia -Hemoglobin was on admission 1.3 -s/p 4 units PRBC transfusion -on active vaginal bleeding -Continue to monitor hemoglobin -Hematology consulted - hold any further transfusion in the light of elevated LFT Urinary tract infection -Urine WBC >8 -Urine culture pending -cont on IV Abx Elevated Liver Enzymes -Will continue to monitor - total camelia 3.0 today, hold transfusion per Dr Geena Guaman menorrhagia -Currently on menstrual cycle - Menstrual cycle lasting 10-14 days (over the past 7-8 months) -US pelvis/ transvaginal showed Multiple uterine fibroids; Normal Doppler flow in the right ovary; The left ovary was not definitely visualized but there is no left adnexal mass lesion. -MDS COORDINATOR consulted - started on provera Hyponatremia -Na on admission 132 -Slowly correct Na with IVF -Continue to monitor replete prn Tobacco abuse -Current every day smoker -Counseled for cessation -Nicotine patch when necessary DVT PPX -On SCD's Brief History: 33-year-old -[place] female who is an ongoing smoker with history of menorrhagia who presents to [facility] ED with complaints of menorrhagia and worsening generalized weakness over the past 3 days. Lab work showed Hb of 1.3, admitted for further evaluation. Subjective Date of service: 12/02/18 Principal diagnosis: ADOLPH Interval history: Patient seen and examined c/o vaginal bleeding for 2 weeks also states that she feels very tired and lacking appetite Objective - Constitutional Vitals: Vital Signs - 12hr 12/02/18 12/02/18 05:31 05:45 Temperature 98.1 F Pulse Rate 53 L Respiratory 18 18 Rate Blood Pressure 111/67 O2 Sat by Pulse 100 Oximetry General appearance: Present: no acute distress - EENT Eyes: PERRL, EOM intact ENT: hearing intact, clear oral mucosa Ears: bilateral: normal - Neck Neck: supple, normal ROM - Respiratory Respiratory effort: normal Respiratory: bilateral: CTA - Cardiovascular Rhythm: regular Heart Sounds: Present: S1 & S2. Absent: gallop, rub Extremities: pulses intact, No edema, normal color, Full ROM - Gastrointestinal General gastrointestinal: Present: soft, non-tender, non-distended, normal bowel sounds - Genitourinary Female genitourinary: normal - Integumentary Integumentary: clear, warm, dry - Musculoskeletal Musculoskeletal: 1, strength equal bilaterally - Neurologic Neurologic: moves all extremities - Psychiatric Psychiatric: memory intact, appropriate mood/affect, intact judgment & insight - Labs CBC & Chem 7: 12/02/18 09:34 12/02/18 05:05 Labs: Abnormal lab results 12/01/18 12/01/18 12/02/18 Range/Units 22:33 Unknown 05:05 WBC (4.5-11.0) K/mm3 RBC 2.18 L (3.65-5.03) M/mm3 Hgb 5.5 L* (10.1-14.3) gm/dl Hct 16.9 L* D (30.3-42.9) % MCV 78 L (79-97) fl MCH 25 L (28-32) pg RDW 28.5 H (13.2-15.2) % Plt Count 135 L (140-440) K/mm3 Seg Neuts % (Manual) 73.0 H (40.0-70.0) % Nucleated RBC % 2.0 H (0.0-0.9) % Sodium 136 L (137-145) mmol/L Potassium 3.3 L (3.6-5.0) mmol/L Chloride 107.2 H (98-107) mmol/L Carbon Dioxide 21 L D (22-30) mmol/L Creatinine 0.6 L (0.7-1.2) mg/dL Glucose 106 H (65-100) mg/dL Calcium 8.0 L (8.4-10.2) mg/dL Total Bilirubin 3.00 H (0.1-1.2) mg/dL AST 244 H (5-40) units/L ALT 204 H (7-56) units/L Total Protein 5.9 L (6.3-8.2) g/dL Albumin 3.5 L (3.9-5) g/dL Crossmatch See Detail 12/02/18 Range/Units 09:34 WBC 4.4 L (4.5-11.0) K/mm3 RBC 1.96 L (3.65-5.03) M/mm3 Hgb 4.8 L* (10.1-14.3) gm/dl Hct 15.1 L* (30.3-42.9) % MCV 77 L (79-97) fl MCH 24 L (28-32) pg RDW 28.6 H (13.2-15.2) % Plt Count 105 L (140-440) K/mm3 Seg Neuts % (Manual) (40.0-70.0) % Nucleated RBC % (0.0-0.9) % Sodium (137-145) mmol/L Potassium (3.6-5.0) mmol/L Chloride (98-107) mmol/L Carbon Dioxide (22-30) mmol/L Creatinine (0.7-1.2) mg/dL Glucose (65-100) mg/dL Calcium (8.4-10.2) mg/dL Total Bilirubin (0.1-1.2) mg/dL AST (5-40) units/L ALT (7-56) units/L Total Protein (6.3-8.2) g/dL Albumin (3.9-5) g/dL Crossmatch
[2018-12-02] MEDS ORDERED: SODIUM CHLORIDE 0.9% 500 ML 500 ML IV SCH (11:49)
[2018-12-02] MEDS ORDERED: BUTALB/ACETAMINOPHEN/CAFFEINE TAB PO PRN (11:49)
[2018-12-02] MEDS: medroxyPROGESTERone ACETATE 5 MG TAB PO SCH ×5 (14:07→18:50)
[2018-12-03 06:14] LABS: Mean Corpuscular HGB Conc 33 % (30-34); Mean Corpuscular Volume 76 fl (79-97)
[2018-12-03 06:17] LABS: Hematocrit 14.3 % (30.3-42.9); Hemoglobin 4.7 gm/dl (10.1-14.3); Platelet Count 94 K/mm3 (140-440); Red Cell Distribution Width 28.8 % (13.2-15.2)
[2018-12-03 06:31] LABS: Alanine Aminotransferase 253 units/L (7-56); Albumin 3.3 g/dL (3.9-5); BUN/Creatinine Ratio 10; Bilirubin,Direct 0.9 mg/dL (0-0.2); Blood Urea Nitrogen 5 mg/dL (7-17); Calcium 8.1 mg/dL (8.4-10.2); Hemolysis Index 1
--- NOTE | 2018-12-03 06:33 | Hem/Onc Progress Note ---
Assessment and Plan 1. Microcytic anemia, severe, transfusion given, intravenous iron given. multivitamin and then for fibroid - ELECTRICAL INTERN evaluation will help. 2. Symptoms secondary to severe anemia. 3. I will follow the patient during inpatient stay. 12/03 s/p iv iron s/p prbc abn LFTS MVI MCV rising called lab for smear eval added folate level to labs b12 normal - Patient Problems (1) Iron deficiency anemia Current Visit: Yes Status: Acute Subjective Date of service: 12/03/18 Principal diagnosis: anemia Interval history: abn LFTs- s/p iv iron PRBC held Objective - Exam Narrative Exam: Pain - none General appearance - comfortable Performance status limited self care Eyes - no icterus, ENT - no bleeding LNs cervical not palpable Neck - no LN Respiratory Normal Breath sounds - CTA CVS S1 S2 + Extremities no calf tenderness General GI Soft Rectal deferred female - deferred Skin warm Musculoskeletal moves extremities Neurologically awake - oriented - Constitutional Vitals: Last Vital Signs Temp 97.7 F 12/03/18 05:54 Pulse 53 L 12/03/18 05:54 Resp 16 12/03/18 05:54 BP 88/49 12/03/18 05:54 Pulse Ox 100 12/03/18 05:54 - Labs Lab Results: Laboratory Results - last 24 hr 12/01/18 12/02/18 12/02/18 Unknown 09:34 12:47 WBC 4.4 L RBC 1.96 L Hgb 4.8 L* Hct 15.1 L* MCV 77 L MCH 24 L MCHC 32 RDW 28.6 H Plt Count 105 L Fibrinogen 360 D-Dimer 1421.90 H Sodium Potassium Chloride Carbon Dioxide Anion Gap BUN Creatinine Estimated GFR BUN/Creatinine Ratio Glucose Calcium Total Bilirubin Direct Bilirubin Indirect Bilirubin AST ALT Alkaline Phosphatase Total Protein Albumin Albumin/Globulin Ratio Blood Type B POSITIVE Antibody Screen Negative Crossmatch See Detail 12/03/18 12/03/18 05:47 05:47 WBC 5.2 RBC 1.90 L Hgb 4.7 L* Hct 14.3 L* MCV 76 L MCH 25 L MCHC 33 RDW 28.8 H Plt Count 94 L Fibrinogen D-Dimer Sodium 139 Potassium 3.1 L Chloride 109.3 H Carbon Dioxide 20 L Anion Gap 13 BUN 5 L Creatinine 0.5 L Estimated GFR > 60 BUN/Creatinine Ratio 10 Glucose 98 Calcium 8.1 L Total Bilirubin 1.90 H Direct Bilirubin 0.9 H Indirect Bilirubin 1.0 AST 236 H ALT 253 H Alkaline Phosphatase 168 H Total Protein 5.6 L Albumin 3.3 L Albumin/Globulin Ratio 1.4 Blood Type Antibody Screen Crossmatch Medications & Allergies - Medications Allergies/Adverse Reactions: Allergies amoxicillin Allergy (Verified 11/30/18 22:58) Hives Home Medications: Home Medications Medication Instructions Recorded Confirmed Last Taken Type No Known Home Medications [No 12/01/18 12/01/18 Unknown History Reported Home Medications] Active Medications: Generic Name Dose Route Start Last Admin Trade Name Freq PRN Reason Stop Dose Admin Acetaminophen 650 mg 12/01/18 02:59 12/02/18 05:45 Tylenol PO 650 mg Q4H PRN Administration Pain MILD(1-3)/Fever >100.5/ANDREWS Acetaminophen/Butalbital/Caffeine 1 tab 12/02/18 11:49 12/02/18 13:32 Fioricet PO 1 tab Q4H PRN Administration Headache Docusate Sodium 100 mg 12/01/18 10:00 12/02/18 21:10 Colace PO 100 mg BID MARTHA Administration Ferrous Sulfate 325 mg 12/01/18 10:00 12/02/18 10:54 Feosol PO Not Given QDAY MARTHA Sodium Chloride 1,000 mls @ 75 mls/hr 12/01/18 03:00 12/02/18 22:48 Nacl 0.9% 1000 Ml IV 75 mls/hr DIRECT MARTHA Administration Levofloxacin/Dextrose 500 mg in 100 mls @ 100 mls/hr 12/01/18 10:00 12/02/18 10:55 Levaquin 500mg/100ml IV 12/04/18 09:59 100 mls/hr Q24HR MARTHA Administration Protocol Sodium Chloride 500 mls @ 0 mls/hr 12/02/18 09:16 12/02/18 11:06 Nacl 0.9% 500 Ml IV 12/03/18 09:15 50 mls/hr ONCE NR Administration As Directed Medroxyprogesterone Acetate 10 mg 12/03/18 10:00 Provera PO TID MARTHA Multivitamins 1 each 12/01/18 10:00 12/02/18 09:41 Theragran Tab PO 1 each QDAY MARTHA Administration Nicotine 14 mg 12/01/18 10:00 12/02/18 09:42 Habitrol TD 14 mg QDAY MARTHA Administration Ondansetron HCl 4 mg 12/01/18 02:59 Zofran IV Q8H PRN Nausea And Vomiting Sodium Chloride 10 ml 12/01/18 10:00 12/02/18 21:18 Sodium Chloride Flush Syringe 10 Ml IV 10 ml BID MARTHA Administration Sodium Chloride 10 ml 12/01/18 02:59 12/01/18 22:48 Sodium Chloride Flush Syringe 10 Ml IV 10 ml PRN PRN Administration LINE FLUSH
[2018-12-03] MEDS ORDERED: SODIUM FERRIC GLUCON/SUCRO 125 MG in SODIUM CHLORIDE 0.9% 100 ML IV ONE (07:01)
--- NOTE | 2018-12-03 08:34 | Ultrasound Report ---
ULTRASOUND ABDOMEN, COMPLETE INDICATION: abn LFT - for liver spleen size. COMPARISON: None available. FINDINGS: Pancreas: Normal. Abdominal Aorta: Normal. IVC: Normal. Liver: 17.5 cm. Gallbladder: Sludge. Gallbladder wall is thickened measuring 4.4 mm and mildly edematous. Bile ducts: Normal. Common Bile Duct measures 2 mm. Right Kidney: Normal. Left Kidney: Normal. Spleen: 12.9 cm. Free fluid: None. Additional Findings: None. IMPRESSION: 1. Gallbladder sludge with associated wall thickening/edema worrisome for cholecystitis. 2. Mild hepatosplenomegaly Signer Name: Benjie Harrison MD Signed: 12/03/2018 8:29 AM Workstation Name: [id number]
[2018-12-03 09:05] LABS: Total Cells Counted 100
[2018-12-03 09:06] LABS: Anisocytosis 3+; Hypochromasia 1+
[2018-12-03 09:07] LABS: Tear Drop Cells Few
[2018-12-03 09:09] LABS: Ovalocytes Rare; Platelet Estimate Consistent w Auto
[2018-12-03] MEDS: DOCUSATE SODIUM 100 MG CAP PO SCH ×2 (09:45→21:41)
[2018-12-03] MEDS: NICOTINE 14 MG/24 HR PATCH TD SCH (09:45)
[2018-12-03] MEDS: FERROUS SULFATE 325 MG TAB PO SCH (09:45)
[2018-12-03] MEDS: MULTIVITAMINS ,THERAPEUTIC TAB PO SCH (10:00)
[2018-12-03] MEDS: medroxyPROGESTERone ACETATE 5 MG TAB PO SCH ×3 (10:30→21:41)
--- NOTE | 2018-12-03 11:15 | Progress Note ---
Assessment and Plan - Patient Problems (1) Anemia due to blood loss, acute Current Visit: Yes Status: Acute Plan to address problem: Acute blood loss anemia patient seems and had some decrease in menorrhagia with Provera pills. Cycle has stopped. Patient remains symptomatic. Packed red blood cells have been ill secondary to increased LFTs. We'll follow and transfuse when appropriate. Blood smear pending. Patient actively receiving iron IV at present. Await ADVANCED NURSING PROFESSOR consult. (2) Hypotension Current Visit: Yes Status: Acute Plan to address problem: Now has resolved with IV fluids packed red blood cells. (3) Iron deficiency anemia Current Visit: Yes Status: Acute Plan to address problem: With IV iron. (4) Menorrhagia Current Visit: Yes Status: Acute Plan to address problem: Appears to have improved with Provera. By mouth. ADVANCED NURSING PROFESSOR consult for other options . At this present patient is unsure whether she wants to attempt to conceive again. (5) UTI (urinary tract infection) Current Visit: Yes Status: Acute Plan to address problem: Currently treat IV antibiotics Levaquin. Patient afebrile no flank pain. History Interval history: Patient referred 3-year-old female presents with symptomatic anemia secondary to acute vaginal blood loss anemia and iron deficiency anemia. Initial presentation with hemoglobin of 1.3. Patient's been transfused 4 units packed red blood cells still remains severe microcytic anemia. Present patient alert oriented no pain just still fatigue and dyspnea with exertion Hospitalist Physical - Constitutional Vitals: Temp Pulse Resp BP Pulse Ox 97.7 F 53 L 16 88/49 100 12/03/18 05:54 12/03/18 05:54 12/03/18 05:54 12/03/18 05:54 12/03/18 05:54 General appearance: Present: no acute distress, well-nourished. Absent: disheveled, malodorous - EENT Eyes: Present: PERRL, EOM intact, scleral icterus. Absent: exopthalmos, miosis, mydriasis, discharge ENT: hearing intact, clear oral mucosa, dentition normal - Neck Neck: Present: supple, normal ROM - Respiratory Respiratory: bilateral: CTA - Cardiovascular Rhythm: regular - Extremities Extremities: no ischemia, pulses intact, pulses symmetrical Peripheral Pulses: within normal limits - Abdominal General gastrointestinal: soft, non-tender, non-distended, normal bowel sounds - Integumentary Integumentary: Present: clear, warm - Psychiatric Psychiatric: appropriate mood/affect, intact judgment & insight, memory intact - Neurologic Neurologic: CNII-XII intact, moves all extremities Results - Labs CBC & Chem 7: 12/03/18 05:47 12/03/18 05:47 Labs: Laboratory Last Values WBC 5.2 K/mm3 (4.5-11.0) 12/03/18 05:47 RBC 1.90 M/mm3 (3.65-5.03) L 12/03/18 05:47 Hgb 4.7 gm/dl (10.1-14.3) L* 12/03/18 05:47 Hct 14.3 % (30.3-42.9) L* 12/03/18 05:47 MCV 76 fl (79-97) L 12/03/18 05:47 MCH 25 pg (28-32) L 12/03/18 05:47 MCHC 33 % (30-34) 12/03/18 05:47 RDW 28.8 % (13.2-15.2) H 12/03/18 05:47 Plt Count 94 K/mm3 (140-440) L 12/03/18 05:47 Lymph % (Auto) Management Consulting 12/01/18 00:32 [place] % (Auto) Management Consulting 12/01/18 00:32 Eos % (Auto) Management Consulting 12/01/18 00:32 Baso % (Auto) Management Consulting 12/01/18 00:32 Lymph # Management Consulting 12/01/18 00:32 [place] # Management Consulting 12/01/18 00:32 Eos # Management Consulting 12/01/18 00:32 Baso # Management Consulting 12/01/18 00:32 Add Manual Diff Complete 12/03/18 05:47 Total Counted 100 12/03/18 05:47 Seg Neutrophils % Management Consulting 12/01/18 00:32 Seg Neuts % (Manual) 72.0 % (40.0-70.0) H 12/03/18 05:47 0 % 12/03/18 05:47 22.0 % (13.4-35.0) 12/03/18 05:47 Reactive Lymphs % (Man) 0 % 12/03/18 05:47 1.0 % (0.0-7.3) 12/03/18 05:47 2.0 % (0.0-4.3) 12/03/18 05:47 2.0 % (0.0-1.8) H 12/03/18 05:47 1.0 % 12/03/18 05:47 0 % 12/03/18 05:47 0 % 12/03/18 05:47 0 % 12/03/18 05:47 Nucleated RBC % Not Reportable 12/03/18 05:47 Seg Neutrophils # Management Consulting 12/01/18 00:32 Seg Neutrophils # Man 3.7 K/mm3 (1.8-7.7) 12/03/18 05:47 Band Neutrophils # 0.0 K/mm3 12/03/18 05:47 1.1 K/mm3 (1.2-5.4) L 12/03/18 05:47 Abs React Lymphs (Man) 0.0 K/mm3 12/03/18 05:47 0.1 K/mm3 (0.0-0.8) 12/03/18 05:47 0.1 K/mm3 (0.0-0.4) 12/03/18 05:47 0.1 K/mm3 (0.0-0.1) 12/03/18 05:47 0.1 K/mm3 12/03/18 05:47 0.0 K/mm3 12/03/18 05:47 0.0 K/mm3 12/03/18 05:47 Blast Cells # 0.0 K/mm3 12/03/18 05:47 WBC Morphology Not Reportable 12/03/18 05:47 Hypersegmented Neuts Not Reportable 12/03/18 05:47 Hyposegmented Neuts Not Reportable 12/03/18 05:47 Hypogranular Neuts Not Reportable 12/03/18 05:47 Not Reportable 12/03/18 05:47 Not Reportable 12/03/18 05:47 Not Reportable 12/03/18 05:47 Not Reportable 12/03/18 05:47 Not Reportable 12/03/18 05:47 Not Reportable 12/03/18 05:47 Consistent w auto 12/03/18 05:47 Not Reportable 12/03/18 05:47 Plt Clumps, EDTA Not Reportable 12/03/18 05:47 Not Reportable 12/03/18 05:47 Not Reportable 12/03/18 05:47 Not Reportable 12/03/18 05:47 Plt Morphology Comment Not Reportable 12/03/18 05:47 RBC Morphology Not Reportable 12/03/18 05:47 Dimorphic RBCs Not Reportable 12/03/18 05:47 Not Reportable 12/03/18 05:47 1+ 12/03/18 05:47 Not Reportable 12/03/18 05:47 3+ 12/03/18 05:47 Not Reportable 12/03/18 05:47 Not Reportable 12/03/18 05:47 Not Reportable 12/03/18 05:47 Not Reportable 12/03/18 05:47 Not Reportable 12/03/18 05:47 Not Reportable 12/03/18 05:47 Few 12/03/18 05:47 Rare 12/03/18 05:47 Not Reportable 12/03/18 05:47 Not Reportable 12/03/18 05:47 Not Reportable 12/03/18 05:47 Not Reportable 12/03/18 05:47 Not Reportable 12/03/18 05:47 Not Reportable 12/03/18 05:47 Not Reportable 12/03/18 05:47 Acanthocytes (Spur) Not Reportable 12/03/18 05:47 Rouleaux Not Reportable 12/03/18 05:47 Not Reportable 12/03/18 05:47 Not Reportable 12/03/18 05:47 Not Reportable 12/03/18 05:47 Not Reportable 12/03/18 05:47 Hem Pathologist Commnt Sent to pathology 12/03/18 05:47 360 mg/dl (211-480) 12/02/18 12:47 1421.90 ng/mlDDU (0-234) H 12/02/18 12:47 Sodium 139 mmol/L (137-145) 12/03/18 05:47 Potassium 3.1 mmol/L (3.6-5.0) L 12/03/18 05:47 Chloride 109.3 mmol/L (98-107) H 12/03/18 05:47 Carbon Dioxide 20 mmol/L (22-30) L 12/03/18 05:47 13 mmol/L 12/03/18 05:47 BUN 5 mg/dL (7-17) L 12/03/18 05:47 0.5 mg/dL (0.7-1.2) L 12/03/18 05:47 Estimated GFR > 60 ml/min 12/03/18 05:47 10 % 12/03/18 05:47 Glucose 98 mg/dL (65-100) 12/03/18 05:47 Calcium 8.1 mg/dL (8.4-10.2) L 12/03/18 05:47 Magnesium 3.00 mg/dL (1.7-2.3) H 11/30/18 23:36 Iron 157 ug/dL (37-170) 12/01/18 08:54 Iron 159 ug/dL (37-170) 12/01/18 08:54 TIBC 482 mcg/dL (250-450) H 12/01/18 08:54 TIBC 495 mcg/dL (250-450) H 12/01/18 08:54 % Saturation 32.12 % 12/01/18 08:54 339 mg/dl (192-382) 12/01/18 08:54 352 mg/dl (192-382) 12/01/18 08:54 2.9 ng/mL (13.0-400.0) L 12/01/18 08:54 1.90 mg/dL (0.1-1.2) H 12/03/18 05:47 0.9 mg/dL (0-0.2) H 12/03/18 05:47 1.0 mg/dL 12/03/18 05:47 AST 236 units/L (5-40) H 12/03/18 05:47 ALT 253 units/L (7-56) H 12/03/18 05:47 168 units/L (35-129) H 12/03/18 05:47 5.6 g/dL (6.3-8.2) L 12/03/18 05:47 3.3 g/dL (3.9-5) L 12/03/18 05:47 1.4 % 12/03/18 05:47 Vitamin B12 1048 pg/mL (211-911) H 12/01/18 08:54 TSH 2.220 mlU/mL (0.270-4.200) 12/01/18 08:54 HCG, Qual Negative (Negative) 12/01/18 01:22 Yellow (Yellow) 12/01/18 01:34 Slightly-cloudy (Clear) 12/01/18 01:34 5.0 (5.0-7.0) 12/01/18 01:34 Ur Specific [place] 1.012 (1.003-1.030) 12/01/18 01:34 >500 mg/dL (Negative) 12/01/18 01:34 Neg mg/dL (Negative) 12/01/18 01:34 Neg mg/dL (Negative) 12/01/18 01:34 Lg (Negative) 12/01/18 01:34 Neg (Negative) 12/01/18 01:34 Neg (Negative) 12/01/18 01:34 < 2.0 mg/dL (<2.0) 12/01/18 01:34 Ur Leukocyte Esterase Neg (Negative) 12/01/18 01:34 13.0 /HPF (0.0-6.0) H 12/01/18 01:34 61.0 /HPF (0.0-6.0) 12/01/18 01:34 U Epithel Cells (Auto) 2.0 /HPF (0-13.0) 12/01/18 01:34 2+ /HPF (Negative) 12/01/18 01:34 Few /HPF 12/01/18 01:34 Urine HCG, Qual Negative (Negative) 12/01/18 01:34 Blood Type B POSITIVE 12/01/18 Unknown Antibody Screen Negative 12/01/18 Unknown Crossmatch See Detail 12/01/18 Unknown - Imaging and Cardiology Chest x-ray: image reviewed US - abdomen: report reviewed, image reviewed Venous US: image reviewed Active Medications - Current Medications Current Medications: Generic Name Dose Route Start Last Admin Trade Name Freq PRN Reason Stop Dose Admin Acetaminophen 650 mg 12/01/18 02:59 12/02/18 05:45 Tylenol PO 650 mg Q4H PRN Administration Pain MILD(1-3)/Fever >100.5/ANDREWS Acetaminophen/Butalbital/Caffeine 1 tab 12/02/18 11:49 12/02/18 13:32 Fioricet PO 1 tab Q4H PRN Administration Headache Docusate Sodium 100 mg 12/01/18 10:00 12/03/18 09:45 Colace PO 100 mg BID MARTHA Administration Ferrous Sulfate 325 mg 12/01/18 10:00 12/03/18 09:45 Feosol PO 325 mg QDAY MARTHA Administration Sodium Chloride 1,000 mls @ 75 mls/hr 12/01/18 03:00 12/02/18 22:48 Nacl 0.9% 1000 Ml IV 75 mls/hr DIRECT MARTHA Administration Levofloxacin/Dextrose 500 mg in 100 mls @ 100 mls/hr 12/01/18 10:00 12/03/18 09:46 Levaquin 500mg/100ml IV 12/04/18 09:59 100 mls/hr Q24HR MARTHA Administration Protocol Medroxyprogesterone Acetate 10 mg 12/03/18 10:00 Provera PO TID MARTHA Multivitamins 1 each 12/01/18 10:00 12/02/18 09:41 Theragran Tab PO 1 each QDAY MARTHA Administration Nicotine 14 mg 12/01/18 10:00 12/03/18 09:45 Habitrol TD 14 mg QDAY MARTHA Administration Ondansetron HCl 4 mg 12/01/18 02:59 Zofran IV Q8H PRN Nausea And Vomiting Sodium Chloride 10 ml 12/01/18 10:00 12/03/18 09:48 Sodium Chloride Flush Syringe 10 Ml IV 10 ml BID MARTHA Administration Sodium Chloride 10 ml 12/01/18 02:59 12/01/18 22:48 Sodium Chloride Flush Syringe 10 Ml IV 10 ml PRN PRN Administration LINE FLUSH
[2018-12-03] MEDS ORDERED: POTASSIUM CHLORIDE ER 10 MEQ TAB PO ONE (12:00)
[2018-12-03] MEDS: SODIUM CHLORIDE 0.9% 1000 ML 1,000 ML IV SCH (15:12)
[2018-12-04] MEDS: SODIUM CHLORIDE 0.9% 1000 ML 1,000 ML IV SCH ×2 (06:13→17:24)
[2018-12-04 07:30] LABS: Alanine Aminotransferase 182 units/L (7-56); BUN/Creatinine Ratio 10; Blood Urea Nitrogen 4 mg/dL (7-17); Calcium 8.1 mg/dL (8.4-10.2); Hemolysis Index 0
[2018-12-04 07:45] LABS: Mean Corpuscular HGB Conc 32 % (30-34); Mean Corpuscular Volume 77 fl (79-97); Red Blood Count 1.91 M/mm3 (3.65-5.03)
[2018-12-04 07:57] LABS: Hematocrit 14.7 % (30.3-42.9); Hemoglobin 4.8 gm/dl (10.1-14.3); Platelet Count 88 K/mm3 (140-440); Red Cell Distribution Width 29.5 % (13.2-15.2)
[2018-12-04] MEDS: medroxyPROGESTERone ACETATE 5 MG TAB PO SCH ×3 (08:00→23:03)
[2018-12-04 08:39] LABS: Mean Corpuscular HGB Conc 32 % (30-34); Mean Corpuscular Volume 78 fl (79-97); Red Blood Count 1.92 M/mm3 (3.65-5.03)
[2018-12-04 08:48] LABS: Hematocrit 14.9 % (30.3-42.9); Hemoglobin 4.8 gm/dl (10.1-14.3); Platelet Count 92 K/mm3 (140-440); Red Cell Distribution Width 29.5 % (13.2-15.2)
[2018-12-04 08:54] LABS: Alanine Aminotransferase 175 units/L (7-56); Albumin 2.9 g/dL (3.9-5); BUN/Creatinine Ratio 10; Blood Urea Nitrogen 4 mg/dL (7-17); Hemolysis Index 5
[2018-12-04] MEDS: FERROUS SULFATE 325 MG TAB PO SCH (09:32)
[2018-12-04] MEDS: DOCUSATE SODIUM 100 MG CAP PO SCH ×2 (09:33→22:06)
[2018-12-04] MEDS: MULTIVITAMINS ,THERAPEUTIC TAB PO SCH (09:33)
[2018-12-04] MEDS: NICOTINE 14 MG/24 HR PATCH TD SCH (09:34)
[2018-12-04 10:20] LABS: Basophils % (Manual) 0 % (0.0-1.8); Total Cells Counted 100
[2018-12-04] MEDS: ACETAMINOPHEN 325 MG TAB PO PRN ×2 (10:20→18:15)
[2018-12-04 10:21] LABS: Hypochromasia 3+; Large Platelets Few; Ovalocytes Few; Platelet Estimate Consistent w Auto
[2018-12-04 10:24] LABS: Eosinophils % (Manual) 0 % (0.0-4.3); Total Cells Counted 100
[2018-12-04 10:25] LABS: Giant Platelets Few; Hypochromasia 3+; Ovalocytes Few; Platelet Estimate Consistent w Auto
--- NOTE | 2018-12-04 12:01 | Hem/Onc Progress Note ---
Assessment and Plan 1. Microcytic anemia, severe, transfusion given, intravenous iron given. multivitamin and then for fibroid - SECURITY INCIDENT RESPONSE ENGINEER evaluation will help. 2. Symptoms secondary to severe anemia. 3. I will follow the patient during inpatient stay. 12/04 s/p iv iron s/p prbc abn LFTS MVI MCV rising b12 normal low folate - oral started Low platelets is surprising - usually ADOLPH causes high wbc I myself reviewed the smear - hypochromic red cells - suggestive of ADOLPH will give b12 inj also - as a few multi segmented neutrophils were seen d/w pt that we will look into BMBx - on thursday her cycle is less heavy after speed belt sander intervention - Patient Problems (1) Iron deficiency anemia Current Visit: Yes Status: Acute Subjective Date of service: 12/04/18 Principal diagnosis: anemia Interval history: her cycle is less heavy Objective - Exam Narrative Exam: Pain - none General appearance - comfortable Performance status limited self care Eyes - no icterus, ENT - no bleeding LNs cervical not palpable Neck - no LN Respiratory Normal Breath sounds - CTA CVS S1 S2 + Extremities no calf tenderness General GI Soft Rectal deferred female - deferred Skin warm Musculoskeletal moves extremities Neurologically awake - oriented - Constitutional Vitals: Last Vital Signs Temp 98.5 F 12/04/18 05:01 Pulse 70 12/04/18 05:01 Resp 17 12/04/18 05:01 BP 112/67 12/04/18 05:01 Pulse Ox 99 12/04/18 05:01 - Labs Lab Results: Laboratory Results - last 24 hr 12/01/18 12/01/18 12/04/18 08:54 Unknown 05:51 WBC 7.2 RBC 1.91 L Hgb 4.8 L* Hct 14.7 L* MCV 77 L MCH 25 L MCHC 32 RDW 29.5 H Plt Count 88 L Add Manual Diff Complete Total Counted 100 Seg Neuts % (Manual) 84.0 H Band Neutrophils % 0 Lymphocytes % (Manual) 11.0 L Reactive Lymphs % (Man) 0 Monocytes % (Manual) 1.0 Eosinophils % (Manual) 4.0 Basophils % (Manual) 0 Metamyelocytes % 0 Myelocytes % 0 Promyelocytes % 0 Blast Cells % 0 Nucleated RBC % 2.0 H Seg Neutrophils # Man 6.0 Band Neutrophils # 0.0 Lymphocytes # (Manual) 0.8 L Abs React Lymphs (Man) 0.0 Monocytes # (Manual) 0.1 Eosinophils # (Manual) 0.3 Basophils # (Manual) 0.0 Metamyelocytes # 0.0 Myelocytes # 0.0 Promyelocytes # 0.0 Blast Cells # 0.0 WBC Morphology Not Reportable Hypersegmented Neuts Not Reportable Hyposegmented Neuts Not Reportable Hypogranular Neuts Not Reportable Smudge Cells Not Reportable Toxic Granulation Not Reportable Toxic Vacuolation Not Reportable Dohle Bodies Not Reportable Pelger-Huet Anomaly Not Reportable Daniel Rods Not Reportable Platelet Estimate Consistent w auto Clumped Platelets Not Reportable Plt Clumps, EDTA Not Reportable Large Platelets Few Giant Platelets Not Reportable Platelet Satelliting Not Reportable Plt Morphology Comment Not Reportable RBC Morphology Not Reportable Dimorphic RBCs Not Reportable Polychromasia Not Reportable Hypochromasia 3+ Poikilocytosis Not Reportable Anisocytosis Not Reportable Microcytosis Not Reportable Macrocytosis Not Reportable Spherocytes Not Reportable Pappenheimer Bodies Not Reportable Sickle Cells Not Reportable Target Cells Not Reportable Tear Drop Cells Not Reportable Ovalocytes Few Helmet Cells Not Reportable Chan-Aulander Bodies Not Reportable [place] Rings Not Reportable Jessica Cells Not Reportable Bite Cells Not Reportable Crenated Cell Not Reportable Elliptocytes Not Reportable Acanthocytes (Spur) Not Reportable Rouleaux Not Reportable Hemoglobin C Crystals Not Reportable Schistocytes Not Reportable Malaria parasites Not Reportable Max Bodies Not Reportable Haptoglobin 183 Hem Pathologist Commnt No Sodium Potassium Chloride Carbon Dioxide Anion Gap BUN Creatinine Estimated GFR BUN/Creatinine Ratio Glucose Calcium Total Bilirubin AST ALT Alkaline Phosphatase Total Protein Albumin Albumin/Globulin Ratio Folate Crossmatch See Detail 12/04/18 12/04/18 12/04/18 05:51 05:51 08:08 WBC RBC Hgb Hct MCV MCH MCHC RDW Plt Count Add Manual Diff Total Counted Seg Neuts % (Manual) Band Neutrophils % Lymphocytes % (Manual) Reactive Lymphs % (Man) Monocytes % (Manual) Eosinophils % (Manual) Basophils % (Manual) Metamyelocytes % Myelocytes % Promyelocytes % Blast Cells % Nucleated RBC % Seg Neutrophils # Man Band Neutrophils # Lymphocytes # (Manual) Abs React Lymphs (Man) Monocytes # (Manual) Eosinophils # (Manual) Basophils # (Manual) Metamyelocytes # Myelocytes # Promyelocytes # Blast Cells # WBC Morphology Hypersegmented Neuts Hyposegmented Neuts Hypogranular Neuts Smudge Cells Toxic Granulation Toxic Vacuolation Dohle Bodies Pelger-Huet Anomaly Daniel Rods Platelet Estimate Clumped Platelets Plt Clumps, EDTA Large Platelets Giant Platelets Platelet Satelliting Plt Morphology Comment RBC Morphology Dimorphic RBCs Polychromasia Hypochromasia Poikilocytosis Anisocytosis Microcytosis Macrocytosis Spherocytes Pappenheimer Bodies Sickle Cells Target Cells Tear Drop Cells Ovalocytes Helmet Cells Chan-Aulander Bodies [place] Rings [place] Cells Bite Cells Crenated Cell Elliptocytes Acanthocytes (Spur) Rouleaux Hemoglobin C Crystals Schistocytes Malaria parasites Max Bodies Haptoglobin Hem Pathologist Commnt Sodium 138 139 Potassium 3.4 L 3.5 L Chloride 108.0 H 108.4 H Carbon Dioxide 18 L 16 L Anion Gap 15 18 BUN 4 L 4 L Creatinine 0.4 L 0.4 L Estimated GFR > 60 > 60 BUN/Creatinine Ratio 10 10 Glucose 99 98 Calcium 8.1 L 8.0 L Total Bilirubin 1.00 1.00 AST 107 H 100 H ALT 182 H 175 H Alkaline Phosphatase 226 H 217 H Total Protein 5.4 L 5.4 L Albumin 3.0 L 2.9 L Albumin/Globulin Ratio 1.3 1.2 Folate 6.86 L Crossmatch 12/04/18 08:14 WBC 7.6 RBC 1.92 L Hgb 4.8 L* Hct 14.9 L* MCV 78 L MCH 25 L MCHC 32 RDW 29.5 H Plt Count 92 L Add Manual Diff Complete Total Counted 100 Seg Neuts % (Manual) 88.0 H Band Neutrophils % 0 Lymphocytes % (Manual) 8.0 L Reactive Lymphs % (Man) 0 Monocytes % (Manual) 3.0 Eosinophils % (Manual) 0 Basophils % (Manual) 1.0 Metamyelocytes % 0 Myelocytes % 0 Promyelocytes % 0 Blast Cells % 0 Nucleated RBC % Not Reportable Seg Neutrophils # Man 6.7 Band Neutrophils # 0.0 Lymphocytes # (Manual) 0.6 L Abs React Lymphs (Man) 0.0 Monocytes # (Manual) 0.2 Eosinophils # (Manual) 0.0 Basophils # (Manual) 0.1 Metamyelocytes # 0.0 Myelocytes # 0.0 Promyelocytes # 0.0 Blast Cells # 0.0 WBC Morphology Not Reportable Hypersegmented Neuts Not Reportable Hyposegmented Neuts Not Reportable Hypogranular Neuts Not Reportable Smudge Cells Not Reportable Toxic Granulation Not Reportable Toxic Vacuolation Not Reportable Dohle Bodies Not Reportable Pelger-Huet Anomaly Not Reportable Daniel Rods Not Reportable Platelet Estimate Consistent w auto Clumped Platelets Not Reportable Plt Clumps, EDTA Not Reportable Large Platelets Not Reportable Giant Platelets Few Platelet Satelliting Not Reportable Plt Morphology Comment Not Reportable RBC Morphology Not Reportable Dimorphic RBCs Not Reportable Polychromasia Not Reportable Hypochromasia 3+ Poikilocytosis Not Reportable Anisocytosis Not Reportable Microcytosis Not Reportable Macrocytosis Not Reportable Spherocytes Not Reportable Pappenheimer Bodies Not Reportable Sickle Cells Not Reportable Target Cells Not Reportable Tear Drop Cells Not Reportable Ovalocytes Few Helmet Cells Not Reportable Chan-Aulander Bodies Not Reportable [place] Rings Not Reportable Jessica Cells Not Reportable Bite Cells Not Reportable Crenated Cell Not Reportable Elliptocytes Not Reportable Acanthocytes (Spur) Not Reportable Rouleaux Not Reportable Hemoglobin C Crystals Not Reportable Schistocytes Not Reportable Malaria parasites Not Reportable Max Bodies Not Reportable Haptoglobin Hem Pathologist Commnt No Sodium Potassium Chloride Carbon Dioxide Anion Gap BUN Creatinine Estimated GFR BUN/Creatinine Ratio Glucose Calcium Total Bilirubin AST ALT Alkaline Phosphatase Total Protein Albumin Albumin/Globulin Ratio Folate Crossmatch Medications & Allergies - Medications Allergies/Adverse Reactions: Allergies amoxicillin Allergy (Verified 11/30/18 22:58) Hives shellfish Allergy (Uncoded 12/03/18 12:40) Unknown Home Medications: Home Medications Medication Instructions Recorded Confirmed Last Taken Type No Known Home Medications [No 12/01/18 12/01/18 Unknown History Reported Home Medications] Active Medications: Generic Name Dose Route Start Last Admin Trade Name Freq PRN Reason Stop Dose Admin Acetaminophen 650 mg 12/01/18 02:59 12/04/18 10:20 Tylenol PO 650 mg Q4H PRN Administration Pain MILD(1-3)/Fever >100.5/ANDREWS Acetaminophen/Butalbital/Caffeine 1 tab 12/02/18 11:49 12/02/18 13:32 Fioricet PO 1 tab Q4H PRN Administration Headache Docusate Sodium 100 mg 12/01/18 10:00 12/04/18 09:33 Colace PO 100 mg BID MARTHA Administration Ferrous Sulfate 325 mg 12/01/18 10:00 12/04/18 09:32 Feosol PO 325 mg QDAY MARTHA Administration Folic Acid 1 mg 12/04/18 12:00 Folvite PO QDAY MARTHA Sodium Chloride 1,000 mls @ 75 mls/hr 12/01/18 03:00 12/04/18 06:13 Nacl 0.9% 1000 Ml IV 75 mls/hr DIRECT MARTHA Administration Medroxyprogesterone Acetate 10 mg 12/03/18 10:00 12/04/18 08:00 Provera PO 10 mg TID MARTHA Administration Multivitamins 1 each 12/01/18 10:00 12/04/18 09:33 Theragran Tab PO 1 each QDAY MARTHA Administration Nicotine 14 mg 12/01/18 10:00 12/04/18 09:34 Habitrol TD 14 mg QDAY MARTHA Administration Ondansetron HCl 4 mg 12/01/18 02:59 Zofran IV Q8H PRN Nausea And Vomiting Sodium Chloride 10 ml 12/01/18 10:00 12/04/18 09:34 Sodium Chloride Flush Syringe 10 Ml IV 10 ml BID MARTHA Administration Sodium Chloride 10 ml 12/01/18 02:59 12/01/18 22:48 Sodium Chloride Flush Syringe 10 Ml IV 10 ml PRN PRN Administration LINE FLUSH
[2018-12-04] MEDS: FOLIC ACID 1 MG TAB PO SCH (14:03)
[2018-12-04] MEDS ORDERED: CYANOCOBALAMIN (VIT B-12) 1000 MCG/1 ML INJ SUB-Q ONE (21:56)
[2018-12-05] MEDS: SODIUM CHLORIDE 0.9% 1000 ML 1,000 ML IV SCH (06:42)
[2018-12-05] MEDS: medroxyPROGESTERone ACETATE 5 MG TAB PO SCH ×3 (08:00→21:42)
[2018-12-05] MEDS: FOLIC ACID 1 MG TAB PO SCH (09:46)
[2018-12-05] MEDS: NICOTINE 14 MG/24 HR PATCH TD SCH (09:46)
[2018-12-05] MEDS: FERROUS SULFATE 325 MG TAB PO SCH (09:46)
[2018-12-05] MEDS: MULTIVITAMINS ,THERAPEUTIC TAB PO SCH (09:46)
[2018-12-05] MEDS: DOCUSATE SODIUM 100 MG CAP PO SCH ×2 (09:46→21:42)
[2018-12-05] MEDS: ACETAMINOPHEN 325 MG TAB PO PRN (09:50)
--- NOTE | 2018-12-05 14:01 | Progress Note ---
Assessment and Plan - Patient Problems (1) Anemia due to blood loss, acute Current Visit: Yes Status: Acute Plan to address problem: Acute blood loss anemia. Appreciate hematology note. Unsure if this is just from blood loss secondary to patient has had decrease in there as no bleeding but hemoglobin and hematocrit has not changed much despite IV and in transfusion. Plan bone marrow biopsy on Thursday. (2) Hypotension Current Visit: Yes Status: Resolved Plan to address problem: Now has resolved with IV fluids packed red blood cells. (3) Iron deficiency anemia Current Visit: Yes Status: Acute Plan to address problem: With IV iron. (4) Menorrhagia Current Visit: Yes Status: Acute Plan to address problem: Improved on control. No heavy flow. (5) UTI (urinary tract infection) Current Visit: Yes Status: Acute Plan to address problem: Currently treat IV antibiotics Levaquin. Patient afebrile no flank pain. History Interval history: 7M the patient at bedside. and patient at bedside QUESTIONS and conc erns answered. Discussed about the amount biopsy. In H&H is not improving. Agree to biopsy understand the rationale. He complains today of constipation. So will like pain medications. Nothing by mouth. Hospitalist Physical - Constitutional Vitals: Temp Pulse Resp BP Pulse Ox 100.1 F H 79 20 107/54 100 12/05/18 04:51 12/05/18 04:51 12/05/18 04:51 12/05/18 04:51 12/05/18 04:51 General appearance: Present: no acute distress, well-nourished. Absent: disheveled, malodorous - EENT Eyes: Present: PERRL, EOM intact ENT: hearing intact, clear oral mucosa, dentition normal - Neck Neck: Present: supple, normal ROM - Respiratory Respiratory effort: normal Respiratory: bilateral: CTA - Cardiovascular Rhythm: regular - Extremities Extremities: no ischemia, pulses intact, pulses symmetrical, No edema, normal temperature Peripheral Pulses: within normal limits - Abdominal General gastrointestinal: soft, non-tender, non-distended, normal bowel sounds, no hepatomegaly, no mass - Integumentary Integumentary: Present: clear, warm - Psychiatric Psychiatric: appropriate mood/affect, intact judgment & insight Results - Labs CBC & Chem 7: 12/04/18 08:14 12/04/18 08:08 Labs: Laboratory Last Values WBC 7.6 K/mm3 (4.5-11.0) 12/04/18 08:14 RBC 1.92 M/mm3 (3.65-5.03) L 12/04/18 08:14 Hgb 4.8 gm/dl (10.1-14.3) L* 12/04/18 08:14 Hct 14.9 % (30.3-42.9) L* 12/04/18 08:14 MCV 78 fl (79-97) L 12/04/18 08:14 MCH 25 pg (28-32) L 12/04/18 08:14 MCHC 32 % (30-34) 12/04/18 08:14 RDW 29.5 % (13.2-15.2) H 12/04/18 08:14 Plt Count 92 K/mm3 (140-440) L 12/04/18 08:14 Lymph % (Auto) [employer] Employment 12/01/18 00:32 [place] % (Auto) Senior Staff [employer] Employment 12/01/18 00:32 Eos % (Auto) Senior Staff [employer]ized Employment 12/01/18 00:32 Baso % (Auto) Senior Staff Specialized Employment 12/01/18 00:32 Lymph # Senior Staff [employer] Employment 12/01/18 00:32 [place] # Senior Staff Specialized Employment 12/01/18 00:32 Eos # Senior Staff Specialized Employment 12/01/18 00:32 Baso # Senior Staff [employer]ized Employment 12/01/18 00:32 Add Manual Diff Complete 12/04/18 08:14 Total Counted 100 12/04/18 08:14 Seg Neutrophils % Senior Staff [employer] Employment 12/01/18 00:32 Seg Neuts % (Manual) 88.0 % (40.0-70.0) H 12/04/18 08:14 0 % 12/04/18 08:14 8.0 % (13.4-35.0) L 12/04/18 08:14 Reactive Lymphs % (Man) 0 % 12/04/18 08:14 3.0 % (0.0-7.3) 12/04/18 08:14 0 % (0.0-4.3) 12/04/18 08:14 1.0 % (0.0-1.8) 12/04/18 08:14 0 % 12/04/18 08:14 0 % 12/04/18 08:14 0 % 12/04/18 08:14 0 % 12/04/18 08:14 Nucleated RBC % Not Reportable 12/04/18 08:14 Seg Neutrophils # Senior Staff Specialized Employment 12/01/18 00:32 Seg Neutrophils # Man 6.7 K/mm3 (1.8-7.7) 12/04/18 08:14 Band Neutrophils # 0.0 K/mm3 12/04/18 08:14 0.6 K/mm3 (1.2-5.4) L 12/04/18 08:14 Abs React Lymphs (Man) 0.0 K/mm3 12/04/18 08:14 0.2 K/mm3 (0.0-0.8) 12/04/18 08:14 0.0 K/mm3 (0.0-0.4) 12/04/18 08:14 0.1 K/mm3 (0.0-0.1) 12/04/18 08:14 0.0 K/mm3 12/04/18 08:14 0.0 K/mm3 12/04/18 08:14 0.0 K/mm3 12/04/18 08:14 Blast Cells # 0.0 K/mm3 12/04/18 08:14 Pathologist Review 12/03/18 05:47 WBC Morphology Not Reportable 12/04/18 08:14 Hypersegmented Neuts Not Reportable 12/04/18 08:14 Hyposegmented Neuts Not Reportable 12/04/18 08:14 Hypogranular Neuts Not Reportable 12/04/18 08:14 Not Reportable 12/04/18 08:14 Not Reportable 12/04/18 08:14 Not Reportable 12/04/18 08:14 Not Reportable 12/04/18 08:14 Not Reportable 12/04/18 08:14 Not Reportable 12/04/18 08:14 Consistent w auto 12/04/18 08:14 Not Reportable 12/04/18 08:14 Plt Clumps, EDTA Not Reportable 12/04/18 08:14 Not Reportable 12/04/18 08:14 Few 12/04/18 08:14 Not Reportable 12/04/18 08:14 Plt Morphology Comment Not Reportable 12/04/18 08:14 RBC Morphology Not Reportable 12/04/18 08:14 Dimorphic RBCs Not Reportable 12/04/18 08:14 Not Reportable 12/04/18 08:14 3+ 12/04/18 08:14 Not Reportable 12/04/18 08:14 Not Reportable 12/04/18 08:14 Not Reportable 12/04/18 08:14 Not Reportable 12/04/18 08:14 Not Reportable 12/04/18 08:14 Not Reportable 12/04/18 08:14 Not Reportable 12/04/18 08:14 Not Reportable 12/04/18 08:14 Not Reportable 12/04/18 08:14 Few 12/04/18 08:14 Not Reportable 12/04/18 08:14 Not Reportable 12/04/18 08:14 Not Reportable 12/04/18 08:14 Not Reportable 12/04/18 08:14 Not Reportable 12/04/18 08:14 Not Reportable 12/04/18 08:14 Not Reportable 12/04/18 08:14 Acanthocytes (Spur) Not Reportable 12/04/18 08:14 Rouleaux Not Reportable 12/04/18 08:14 Not Reportable 12/04/18 08:14 Not Reportable 12/04/18 08:14 Not Reportable 12/04/18 08:14 Not Reportable 12/04/18 08:14 183 mg/dL (43-212) 12/01/18 08:54 Hem Pathologist Commnt No 12/04/18 08:14 360 mg/dl (211-480) 12/02/18 12:47 1421.90 ng/mlDDU (0-234) H 12/02/18 12:47 Sodium 139 mmol/L (137-145) 12/04/18 08:08 Potassium 3.5 mmol/L (3.6-5.0) L 12/04/18 08:08 Chloride 108.4 mmol/L (98-107) H 12/04/18 08:08 Carbon Dioxide 16 mmol/L (22-30) L 12/04/18 08:08 18 mmol/L 12/04/18 08:08 BUN 4 mg/dL (7-17) L 12/04/18 08:08 0.4 mg/dL (0.7-1.2) L 12/04/18 08:08 Estimated GFR > 60 ml/min 12/04/18 08:08 10 % 12/04/18 08:08 Glucose 98 mg/dL (65-100) 12/04/18 08:08 Calcium 8.0 mg/dL (8.4-10.2) L 12/04/18 08:08 Magnesium 3.00 mg/dL (1.7-2.3) H 11/30/18 23:36 Iron 157 ug/dL (37-170) 12/01/18 08:54 Iron 159 ug/dL (37-170) 12/01/18 08:54 TIBC 482 mcg/dL (250-450) H 12/01/18 08:54 TIBC 495 mcg/dL (250-450) H 12/01/18 08:54 % Saturation 32.12 % 12/01/18 08:54 339 mg/dl (192-382) 12/01/18 08:54 352 mg/dl (192-382) 12/01/18 08:54 2.9 ng/mL (13.0-400.0) L 12/01/18 08:54 1.00 mg/dL (0.1-1.2) 12/04/18 08:08 0.9 mg/dL (0-0.2) H 12/03/18 05:47 1.0 mg/dL 12/03/18 05:47 AST 100 units/L (5-40) H 12/04/18 08:08 ALT 175 units/L (7-56) H 12/04/18 08:08 217 units/L (35-129) H 12/04/18 08:08 5.4 g/dL (6.3-8.2) L 12/04/18 08:08 2.9 g/dL (3.9-5) L 12/04/18 08:08 1.2 % 12/04/18 08:08 Vitamin B12 1048 pg/mL (211-911) H 12/01/18 08:54 6.86 ng/mL (7.3-26.0) L 12/04/18 05:51 TSH 2.220 mlU/mL (0.270-4.200) 12/01/18 08:54 HCG, Qual Negative (Negative) 12/01/18 01:22 Yellow (Yellow) 12/01/18 01:34 Slightly-cloudy (Clear) 12/01/18 01:34 5.0 (5.0-7.0) 12/01/18 01:34 Ur Specific [place] 1.012 (1.003-1.030) 12/01/18 01:34 >500 mg/dL (Negative) 12/01/18 01:34 Neg mg/dL (Negative) 12/01/18 01:34 Neg mg/dL (Negative) 12/01/18 01:34 Lg (Negative) 12/01/18 01:34 Neg (Negative) 12/01/18 01:34 Neg (Negative) 12/01/18 01:34 < 2.0 mg/dL (<2.0) 12/01/18 01:34 Ur Leukocyte Esterase Neg (Negative) 12/01/18 01:34 13.0 /HPF (0.0-6.0) H 12/01/18 01:34 61.0 /HPF (0.0-6.0) 12/01/18 01:34 U Epithel Cells (Auto) 2.0 /HPF (0-13.0) 12/01/18 01:34 2+ /HPF (Negative) 12/01/18 01:34 Few /HPF 12/01/18 01:34 Urine HCG, Qual Negative (Negative) 12/01/18 01:34 Blood Type B POSITIVE 12/01/18 Unknown Antibody Screen Negative 12/01/18 Unknown Crossmatch See Detail 12/01/18 Unknown Active Medications - Current Medications Current Medications: Generic Name Dose Route Start Last Admin Trade Name Freq PRN Reason Stop Dose Admin Acetaminophen 650 mg 12/01/18 02:59 12/05/18 09:50 Tylenol PO 650 mg Q4H PRN Administration Pain MILD(1-3)/Fever >100.5/ANDREWS Acetaminophen/Butalbital/Caffeine 1 tab 12/02/18 11:49 12/02/18 13:32 Fioricet PO 1 tab Q4H PRN Administration Headache Docusate Sodium 100 mg 12/01/18 10:00 12/05/18 09:46 Colace PO 100 mg BID MARTHA Administration Ferrous Sulfate 325 mg 12/01/18 10:00 12/05/18 09:46 Feosol PO 325 mg QDAY MARTHA Administration Folic Acid 1 mg 12/04/18 12:00 12/05/18 09:46 Folvite PO 1 mg QDAY MARTHA Administration Sodium Chloride 1,000 mls @ 75 mls/hr 12/01/18 03:00 12/05/18 06:42 Nacl 0.9% 1000 Ml IV 75 mls/hr DIRECT MARTHA Administration Medroxyprogesterone Acetate 10 mg 12/03/18 10:00 12/05/18 13:23 Provera PO 10 mg TID MARTHA Administration Multivitamins 1 each 12/01/18 10:00 12/05/18 09:46 Theragran Tab PO 1 each QDAY MARTHA Administration Nicotine 14 mg 12/01/18 10:00 12/05/18 09:46 Habitrol TD 14 mg QDAY MARTHA Administration Ondansetron HCl 4 mg 12/01/18 02:59 Zofran IV Q8H PRN Nausea And Vomiting Sodium Chloride 10 ml 12/01/18 10:00 12/05/18 09:47 Sodium Chloride Flush Syringe 10 Ml IV 10 ml BID MARTHA Administration Sodium Chloride 10 ml 12/01/18 02:59 12/01/18 22:48 Sodium Chloride Flush Syringe 10 Ml IV 10 ml PRN PRN Administration LINE FLUSH Nutrition/Malnutrition Assess - Dietary Evaluation Nutrition/Malnutrition Findings: Nutrition Notes Start: 12/03/18 12:09 Freq: Status: Active Protocol: Document 12/03/18 12:09 RM (Rec: 12/03/18 12:38 [email or web address]) Nutrition Notes Need for Assessment generated from: MST Initial or Follow up Assessment Other Pertinent Diagnosis Iron deficiency blood loss anemia, Menorrhagia, UTI Current Diet Regular Labs/Tests Reviewed Pertinent Medications Reviewed Height 5 ft 7 in Weight 63.6 kg Usual Body Weight 88.64 kg [place] Body Weight (kg) 61.36 BMI 21.9 Weight change and time frame 28% wt loss X 6 months Subjective/Other Information Screened for malnutrition. Pt stated that APPEALS RN her appetite was poor d/t depression related to her father passing away. Stated that she ate 2 meals daily until she became sick and during the last 5 days ate nothing. Stated that her appetite is improving here and that she eats 50% of her meals but does not like them. Stated that her UBW was 190- 200 lbs last June. Noted temporal and clavicle wasting. Burn Absent Trauma Absent Minimum of two criteria Yes Energy Intake (non-severe) <75% Estimated Energy Requirement >7 days Interpretation of Weight Loss (severe) >10% in 6 months Body Fat Depletion Mild depletion (non-severe) Muscle Mass Mild Depletion (non-severe) #1 Nutrition Diagnosis Malnutrition Etiology decreased appetite As Evidenced by Signs and Symptoms clavicle and temporal wasting, 28% wt loss X 6 months, pt statement APPEALS RN that she ate 2 meals daily until she became sick and during the last 5 days ate nothing Is patient on ventilator? No Is Patient Ambulatory and/or Out of Bed Yes REE-([facility]-ambulatory/OOB) [ [id number] [id number]] Calculation Used for Recommendations [facility] Additional Notes Protein Needs: 76-95g (1.2-1. 5g/kg) Fluid Needs: 1 ml/kcal Nutrition Intervention Change Diet Order: Continue current Add Supplement/Snack (indicate name/kcal Ensure Enlive Vanilla 1 daily /protein ) Provides kCal: 350 Provides Protein (gm) 20 Goal #1 Meet at least 75% of calorie and protein needs via PO and ONS intakes Anticipated Discharge Needs: Regular diet Follow-Up By: 12/07/18 Additional Comments Follow for PO and ONS intakes
[2018-12-05] MEDS ORDERED: MAGNESIUM HYDROXIDE (MOM) ORAL LIQD UDC PO PRN (14:06)
--- NOTE | 2018-12-05 15:07 | Hem/Onc Progress Note ---
Assessment and Plan 1. Microcytic anemia, severe, transfusion given, intravenous iron given. 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 2. Symptoms secondary to severe anemia. 3. I will follow the patient during inpatient stay. 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 will wait for CBC on thursday - Patient Problems (1) Iron deficiency anemia Current Visit: Yes Status: Acute Subjective Date of service: 12/05/18 Principal diagnosis: pancytopenia Interval history: light cycles Objective - Exam Narrative Exam: Pain - none General appearance - comfortable Performance status limited self care Eyes - no icterus, ENT - no bleeding LNs cervical not palpable Neck - no LN Respiratory Normal Breath sounds - CTA CVS S1 S2 + Extremities no calf tenderness General GI Soft Rectal deferred female - deferred Skin warm Musculoskeletal moves extremities Neurologically awake - oriented - Constitutional Vitals: Last Vital Signs Temp 100.1 F H 12/05/18 04:51 Pulse 79 12/05/18 04:51 Resp 20 12/05/18 04:51 BP 107/54 12/05/18 04:51 Pulse Ox 100 12/05/18 04:51 Medications & Allergies - Medications Allergies/Adverse Reactions: Allergies amoxicillin Allergy (Verified 11/30/18 22:58) Hives shellfish Allergy (Uncoded 12/03/18 12:40) Unknown Home Medications: Home Medications Medication Instructions Recorded Confirmed Last Taken Type No Known Home Medications [No 12/01/18 12/01/18 Unknown History Reported Home Medications] Active Medications: Generic Name Dose Route Start Last Admin Trade Name Freq PRN Reason Stop Dose Admin Acetaminophen 650 mg 12/01/18 02:59 12/05/18 09:50 Tylenol PO 650 mg Q4H PRN Administration Pain MILD(1-3)/Fever >100.5/ANDREWS Acetaminophen/Butalbital/Caffeine 1 tab 12/02/18 11:49 12/02/18 13:32 Fioricet PO 1 tab Q4H PRN Administration Headache Cyanocobalamin 1,000 mcg 12/05/18 15:06 Vitamin B-12 SUB-Q 12/05/18 15:07 ONCE ONE Docusate Sodium 100 mg 12/01/18 10:00 12/05/18 09:46 Colace PO 100 mg BID MARTHA Administration Ferrous Sulfate 325 mg 12/01/18 10:00 12/05/18 09:46 Feosol PO 325 mg QDAY MARTHA Administration Folic Acid 1 mg 12/04/18 12:00 12/05/18 09:46 Folvite PO 1 mg QDAY MARTHA Administration Sodium Chloride 1,000 mls @ 75 mls/hr 12/01/18 03:00 12/05/18 06:42 Nacl 0.9% 1000 Ml IV 75 mls/hr DIRECT MARTHA Administration Ferric Sodium Gluconate 110 mls @ 100 mls/hr 12/05/18 15:06 Complex 125 mg/ Sodium IV 12/05/18 16:11 Chloride ONCE ONE Magnesium Hydroxide 30 ml 12/05/18 14:06 12/05/18 14:53 Milk Of Magnesia PO 30 ml Q4H PRN Administration Constipation Medroxyprogesterone Acetate 10 mg 12/03/18 10:00 12/05/18 13:23 Provera PO 10 mg TID MARTHA Administration Morphine Sulfate 2 mg 12/05/18 14:06 Morphine IV Q4H PRN Pain, Moderate (4-6) Multivitamins 1 each 12/01/18 10:00 12/05/18 09:46 Theragran Tab PO 1 each QDAY MARTHA Administration Nicotine 14 mg 12/01/18 10:00 12/05/18 09:46 Habitrol TD 14 mg QDAY MARTHA Administration Ondansetron HCl 4 mg 12/01/18 02:59 Zofran IV Q8H PRN Nausea And Vomiting Sodium Chloride 10 ml 12/01/18 10:00 12/05/18 09:47 Sodium Chloride Flush Syringe 10 Ml IV 10 ml BID MARTHA Administration Sodium Chloride 10 ml 12/01/18 02:59 12/01/18 22:48 Sodium Chloride Flush Syringe 10 Ml IV 10 ml PRN PRN Administration LINE FLUSH
[2018-12-05] MEDS ORDERED: CYANOCOBALAMIN (VIT B-12) 1000 MCG/1 ML INJ SUB-Q ONE (16:00)
[2018-12-05] MEDS ORDERED: SODIUM FERRIC GLUCON/SUCRO 125 MG in SODIUM CHLORIDE 0.9% 100 ML IV ONE (16:00)
[2018-12-06] MEDS: SODIUM CHLORIDE 0.9% 1000 ML 1,000 ML IV SCH ×2 (00:52→17:42)
--- NOTE | 2018-12-06 07:19 | Hem/Onc Progress Note ---
Assessment and Plan 1. Microcytic anemia, severe, transfusion given, intravenous iron given. 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 2. Symptoms secondary to severe anemia. 3. I will follow the patient during inpatient stay. 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 will wait for CBC - BMBX ordered - Patient Problems (1) Iron deficiency anemia Current Visit: Yes Status: Acute Subjective Date of service: 12/06/18 Principal diagnosis: anemia Interval history: weakness Objective - Exam Narrative Exam: Pain - none General appearance - comfortable Performance status limited self care Eyes - no icterus, ENT - no bleeding LNs cervical not palpable Neck - no LN Respiratory Normal Breath sounds - CTA CVS S1 S2 + Extremities no calf tenderness General GI Soft Rectal deferred female - deferred Skin warm Musculoskeletal moves extremities Neurologically awake - oriented - Constitutional Vitals: Last Vital Signs Temp 100.6 F H 12/06/18 03:49 Pulse 75 12/06/18 03:49 Resp 20 12/06/18 03:49 BP 115/45 12/06/18 03:49 Pulse Ox 98 12/06/18 03:49 Medications & Allergies - Medications Allergies/Adverse Reactions: Allergies amoxicillin Allergy (Verified 11/30/18 22:58) Hives shellfish Allergy (Uncoded 12/03/18 12:40) Unknown Home Medications: Home Medications Medication Instructions Recorded Confirmed Last Taken Type No Known Home Medications [No 12/01/18 12/01/18 Unknown History Reported Home Medications] Active Medications: Generic Name Dose Route Start Last Admin Trade Name Freq PRN Reason Stop Dose Admin Acetaminophen 650 mg 12/01/18 02:59 12/05/18 09:50 Tylenol PO 650 mg Q4H PRN Administration Pain MILD(1-3)/Fever >100.5/ANDREWS Acetaminophen/Butalbital/Caffeine 1 tab 12/02/18 11:49 12/02/18 13:32 Fioricet PO 1 tab Q4H PRN Administration Headache Docusate Sodium 100 mg 12/01/18 10:00 12/05/18 21:42 Colace PO 100 mg BID MARTHA Administration Ferrous Sulfate 325 mg 12/01/18 10:00 12/05/18 09:46 Feosol PO 325 mg QDAY MARTHA Administration Folic Acid 1 mg 12/04/18 12:00 12/05/18 09:46 Folvite PO 1 mg QDAY MARTHA Administration Sodium Chloride 1,000 mls @ 75 mls/hr 12/01/18 03:00 12/06/18 00:52 Nacl 0.9% 1000 Ml IV 75 mls/hr DIRECT MARTHA Administration Magnesium Hydroxide 30 ml 12/05/18 14:06 12/05/18 14:53 Milk Of Magnesia PO 30 ml Q4H PRN Administration Constipation Medroxyprogesterone Acetate 10 mg 12/03/18 10:00 12/05/18 21:42 Provera PO 10 mg TID MARTHA Administration Morphine Sulfate 2 mg 12/05/18 14:06 Morphine IV Q4H PRN Pain, Moderate (4-6) Multivitamins 1 each 12/01/18 10:00 12/05/18 09:46 Theragran Tab PO 1 each QDAY MARTHA Administration Nicotine 14 mg 12/01/18 10:00 12/05/18 09:46 Habitrol TD 14 mg QDAY MARTHA Administration Ondansetron HCl 4 mg 12/01/18 02:59 Zofran IV Q8H PRN Nausea And Vomiting Sodium Chloride 10 ml 12/01/18 10:00 12/05/18 21:42 Sodium Chloride Flush Syringe 10 Ml IV 10 ml BID MARTHA Administration Sodium Chloride 10 ml 12/01/18 02:59 12/01/18 22:48 Sodium Chloride Flush Syringe 10 Ml IV 10 ml PRN PRN Administration LINE FLUSH
[2018-12-06 08:12] LABS: Mean Corpuscular HGB Conc 32 % (30-34); Mean Corpuscular Volume 79 fl (79-97); Platelet Count 106 K/mm3 (140-440); Red Blood Count 1.96 M/mm3 (3.65-5.03)
[2018-12-06 08:23] LABS: Hematocrit 15.5 % (30.3-42.9); Hemoglobin 4.9 gm/dl (10.1-14.3); Red Cell Distribution Width 31.2 % (13.2-15.2)
[2018-12-06] MEDS: DOCUSATE SODIUM 100 MG CAP PO SCH ×4 (10:24→21:43)
[2018-12-06] MEDS: FERROUS SULFATE 325 MG TAB PO SCH ×2 (10:24→17:46)
[2018-12-06] MEDS: medroxyPROGESTERone ACETATE 5 MG TAB PO SCH ×3 (10:24→21:41)
[2018-12-06] MEDS: MULTIVITAMINS ,THERAPEUTIC TAB PO SCH ×2 (10:25→17:45)
[2018-12-06] MEDS: FOLIC ACID 1 MG TAB PO SCH ×2 (10:25→17:46)
[2018-12-06 10:58] LABS: INR 1.34 (0.87-1.13)
[2018-12-06 10:59] LABS: Partial Thromboplastin Time 31.1 Sec. (24.2-36.6)
--- NOTE | 2018-12-06 11:40 | Progress Note ---
Assessment and Plan - Patient Problems (1) Anemia due to blood loss, acute Current Visit: Yes Status: Acute Plan to address problem: Acute blood loss anemia. Appreciate hematology note. Unsure if this is just from blood loss secondary to patient has had decrease in there as no bleeding but hemoglobin and hematocrit has not changed much despite IV and in transfusion. Plan bone marrow biopsy on Thursday.will await findings (2) Hypotension Current Visit: Yes Status: Resolved Plan to address problem: Hypotension has resolved. Patient remains normotensive. (3) Iron deficiency anemia Current Visit: Yes Status: Acute Plan to address problem: With IV iron. (4) Menorrhagia Current Visit: Yes Status: Acute Plan to address problem: This is resolved with control. (5) UTI (urinary tract infection) Current Visit: Yes Status: Acute Plan to address problem: Continue present antibiotic coverage with Levaquin. (6) Elevated LFTs Current Visit: Yes Status: Acute Plan to address problem: We'll obtain abdominal CT because patient was having some abdominal pain as well. Most likely constipation did not respond well to milk of magnesia. History Interval history: She is still with anemia at 4.9 with 15. Patient's liver function tests have gone down. Tests consistent with vaginal blood loss anemia versus severe iron deficiency anemia. Patient has severe microcytic anemia. Bone marrow biopsy pending for today. Hospitalist Physical - Constitutional Vitals: Temp Pulse Resp BP Pulse Ox 100.6 F H 75 20 115/45 98 12/06/18 03:49 12/06/18 03:49 12/06/18 03:49 12/06/18 03:49 12/06/18 03:49 General appearance: Present: no acute distress, well-nourished. Absent: disheveled, malodorous - EENT Eyes: Present: PERRL, EOM intact ENT: hearing intact, clear oral mucosa, dentition normal - Neck Neck: Present: supple, normal ROM - Respiratory Respiratory effort: normal Respiratory: bilateral: CTA - Cardiovascular Rhythm: regular - Extremities Extremities: no ischemia, pulses intact, pulses symmetrical Extremity abnormal: edema Peripheral Pulses: within normal limits - Abdominal General gastrointestinal: soft, tender, normal bowel sounds, no hepatomegaly, no splenomegaly - Integumentary Integumentary: Present: clear, warm, dry - Neurologic Neurologic: CNII-XII intact, moves all extremities Results - Labs CBC & Chem 7: 09/30/19 07:14 12/04/18 08:08 Labs: Laboratory Last Values WBC 10.1 K/mm3 (4.5-11.0) 12/06/18 07:14 RBC 1.96 M/mm3 (3.65-5.03) L 12/06/18 07:14 Hgb 4.9 gm/dl (10.1-14.3) L* 12/06/18 07:14 Hct 15.5 % (30.3-42.9) L* 12/06/18 07:14 MCV 79 fl (79-97) 12/06/18 07:14 MCH 25 pg (28-32) L 12/06/18 07:14 MCHC 32 % (30-34) 12/06/18 07:14 RDW 31.2 % (13.2-15.2) H 12/06/18 07:14 Plt Count 106 K/mm3 (140-440) L 12/06/18 07:14 Lymph % (Auto) [employer] 12/01/18 00:32 Edmunds % (Auto) [employer] 12/01/18 00:32 Eos % (Auto) [employer] 12/01/18 00:32 Baso % (Auto) [employer] 12/01/18 00:32 Lymph # [employer] 12/01/18 00:32 Edmunds # [employer] 12/01/18 00:32 Eos # [employer] 12/01/18 00:32 Baso # [employer] 12/01/18 00:32 Add Manual Diff Complete 12/04/18 08:14 Total Counted 100 12/04/18 08:14 Seg Neutrophils % [employer] 12/01/18 00:32 Seg Neuts % (Manual) 88.0 % (40.0-70.0) H 12/04/18 08:14 Band Neutrophils % 0 % 12/04/18 08:14 Lymphocytes % (Manual) 8.0 % (13.4-35.0) L 12/04/18 08:14 Reactive Lymphs % (Man) 0 % 12/04/18 08:14 Monocytes % (Manual) 3.0 % (0.0-7.3) 12/04/18 08:14 Eosinophils % (Manual) 0 % (0.0-4.3) 12/04/18 08:14 Basophils % (Manual) 1.0 % (0.0-1.8) 12/04/18 08:14 Metamyelocytes % 0 % 12/04/18 08:14 Myelocytes % 0 % 12/04/18 08:14 Promyelocytes % 0 % 12/04/18 08:14 Blast Cells % 0 % 12/04/18 08:14 Nucleated RBC % Not Reportable 12/04/18 08:14 Seg Neutrophils # [employer] 12/01/18 00:32 Seg Neutrophils # Man 6.7 K/mm3 (1.8-7.7) 12/04/18 08:14 Band Neutrophils # 0.0 K/mm3 12/04/18 08:14 Lymphocytes # (Manual) 0.6 K/mm3 (1.2-5.4) L 12/04/18 08:14 Abs React Lymphs (Man) 0.0 K/mm3 12/04/18 08:14 Monocytes # (Manual) 0.2 K/mm3 (0.0-0.8) 12/04/18 08:14 Eosinophils # (Manual) 0.0 K/mm3 (0.0-0.4) 12/04/18 08:14 Basophils # (Manual) 0.1 K/mm3 (0.0-0.1) 12/04/18 08:14 Metamyelocytes # 0.0 K/mm3 12/04/18 08:14 Myelocytes # 0.0 K/mm3 12/04/18 08:14 Promyelocytes # 0.0 K/mm3 12/04/18 08:14 Blast Cells # 0.0 K/mm3 12/04/18 08:14 Pathologist Review 12/03/18 05:47 WBC Morphology Not Reportable 12/04/18 08:14 Hypersegmented Neuts Not Reportable 12/04/18 08:14 Hyposegmented Neuts Not Reportable 12/04/18 08:14 Hypogranular Neuts Not Reportable 12/04/18 08:14 Smudge Cells Not Reportable 12/04/18 08:14 Toxic Granulation Not Reportable 12/04/18 08:14 Toxic Vacuolation Not Reportable 12/04/18 08:14 Dohle Bodies Not Reportable 12/04/18 08:14 Pelger-Huet Anomaly Not Reportable 12/04/18 08:14 Daniel Rods Not Reportable 12/04/18 08:14 Platelet Estimate Consistent w auto 12/04/18 08:14 Clumped Platelets Not Reportable 12/04/18 08:14 Plt Clumps, EDTA Not Reportable 12/04/18 08:14 Large Platelets Not Reportable 12/04/18 08:14 Giant Platelets Few 12/04/18 08:14 Platelet Satelliting Not Reportable 12/04/18 08:14 Plt Morphology Comment Not Reportable 12/04/18 08:14 RBC Morphology Not Reportable 12/04/18 08:14 Dimorphic RBCs Not Reportable 12/04/18 08:14 Polychromasia Not Reportable 12/04/18 08:14 Hypochromasia 3+ 12/04/18 08:14 Poikilocytosis Not Reportable 12/04/18 08:14 Anisocytosis Not Reportable 12/04/18 08:14 Microcytosis Not Reportable 12/04/18 08:14 Macrocytosis Not Reportable 12/04/18 08:14 Spherocytes Not Reportable 12/04/18 08:14 Pappenheimer Bodies Not Reportable 12/04/18 08:14 Sickle Cells Not Reportable 12/04/18 08:14 Target Cells Not Reportable 12/04/18 08:14 Tear Drop Cells Not Reportable 12/04/18 08:14 Ovalocytes Few 12/04/18 08:14 Helmet Cells Not Reportable 12/04/18 08:14 Chan-[place] Bodies Not Reportable 12/04/18 08:14 [employer] Rings Not Reportable 12/04/18 08:14 [place] Cells Not Reportable 12/04/18 08:14 Bite Cells Not Reportable 12/04/18 08:14 Crenated Cell Not Reportable 12/04/18 08:14 Elliptocytes Not Reportable 12/04/18 08:14 Acanthocytes (Spur) Not Reportable 12/04/18 08:14 Rouleaux Not Reportable 12/04/18 08:14 Hemoglobin C Crystals Not Reportable 12/04/18 08:14 Schistocytes Not Reportable 12/04/18 08:14 Malaria parasites Not Reportable 12/04/18 08:14 Max Bodies Not Reportable 12/04/18 08:14 Haptoglobin 183 mg/dL (43-212) 12/01/18 08:54 Hem Pathologist Commnt No 12/04/18 08:14 PT 16.2 Sec. (12.2-14.9) H 12/06/18 10:22 INR 1.34 (0.87-1.13) H 12/06/18 10:22 APTT 31.1 Sec. (24.2-36.6) 12/06/18 10:22 Fibrinogen 360 mg/dl (211-480) 12/02/18 12:47 D-Dimer 1421.90 ng/mlDDU (0-234) H 12/02/18 12:47 Sodium 139 mmol/L (137-145) 12/04/18 08:08 Potassium 3.5 mmol/L (3.6-5.0) L 12/04/18 08:08 Chloride 108.4 mmol/L (98-107) H 12/04/18 08:08 Carbon Dioxide 16 mmol/L (22-30) L 12/04/18 08:08 Anion Gap 18 mmol/L 12/04/18 08:08 BUN 4 mg/dL (7-17) L 12/04/18 08:08 Creatinine 0.4 mg/dL (0.7-1.2) L 12/04/18 08:08 Estimated GFR > 60 ml/min 12/04/18 08:08 BUN/Creatinine Ratio 10 % 12/04/18 08:08 Glucose 98 mg/dL (65-100) 12/04/18 08:08 Calcium 8.0 mg/dL (8.4-10.2) L 12/04/18 08:08 Magnesium 3.00 mg/dL (1.7-2.3) H 11/30/18 23:36 Iron 157 ug/dL (37-170) 12/01/18 08:54 Iron 159 ug/dL (37-170) 12/01/18 08:54 TIBC 482 mcg/dL (250-450) H 12/01/18 08:54 TIBC 495 mcg/dL (250-450) H 12/01/18 08:54 % Saturation 32.12 % 12/01/18 08:54 Transferrin 339 mg/dl (192-382) 12/01/18 08:54 Transferrin 352 mg/dl (192-382) 12/01/18 08:54 Ferritin 2.9 ng/mL (13.0-400.0) L 12/01/18 08:54 Total Bilirubin 1.00 mg/dL (0.1-1.2) 12/04/18 08:08 Direct Bilirubin 0.9 mg/dL (0-0.2) H 12/03/18 05:47 Indirect Bilirubin 1.0 mg/dL 12/03/18 05:47 AST 100 units/L (5-40) H 12/04/18 08:08 ALT 175 units/L (7-56) H 12/04/18 08:08 Alkaline Phosphatase 217 units/L (35-129) H 12/04/18 08:08 Total Protein 5.4 g/dL (6.3-8.2) L 12/04/18 08:08 Albumin 2.9 g/dL (3.9-5) L 12/04/18 08:08 Albumin/Globulin Ratio 1.2 % 12/04/18 08:08 Vitamin B12 1048 pg/mL (211-911) H 12/01/18 08:54 Folate 6.86 ng/mL (7.3-26.0) L 12/04/18 05:51 TSH 2.220 mlU/mL (0.270-4.200) 12/01/18 08:54 HCG, Qual Negative (Negative) 12/01/18 01:22 Urine Color Yellow (Yellow) 12/01/18 01:34 Urine Turbidity Slightly-cloudy (Clear) 12/01/18 01:34 Urine pH 5.0 (5.0-7.0) 12/01/18 01:34 Ur Specific [place] 1.012 (1.003-1.030) 12/01/18 01:34 Urine Protein >500 mg/dL (Negative) 12/01/18 01:34 Urine Glucose (UA) Neg mg/dL (Negative) 12/01/18 01:34 Urine Ketones Neg mg/dL (Negative) 12/01/18 01:34 Urine Blood Lg (Negative) 12/01/18 01:34 Urine Nitrite Neg (Negative) 12/01/18 01:34 Urine Bilirubin Neg (Negative) 12/01/18 01:34 Urine Urobilinogen < 2.0 mg/dL (<2.0) 12/01/18 01:34 Ur Leukocyte Esterase Neg (Negative) 12/01/18 01:34 Urine WBC (Auto) 13.0 /HPF (0.0-6.0) H 12/01/18 01:34 Urine RBC (Auto) 61.0 /HPF (0.0-6.0) 12/01/18 01:34 U Epithel Cells (Auto) 2.0 /HPF (0-13.0) 12/01/18 01:34 Urine Bacteria (Auto) 2+ /HPF (Negative) 12/01/18 01:34 Urine Mucus Few /HPF 12/01/18 01:34 Urine HCG, Qual Negative (Negative) 12/01/18 01:34 Blood Type B POSITIVE 12/01/18 Unknown Antibody Screen Negative 12/01/18 Unknown Crossmatch See Detail 12/01/18 Unknown Active Medications - Current Medications Current Medications: Generic Name Dose Route Start Last Admin Trade Name Freq PRN Reason Stop Dose Admin Acetaminophen 650 mg 12/01/18 02:59 12/05/18 09:50 Tylenol PO 650 mg Q4H PRN Administration Pain MILD(1-3)/Fever >100.5/ANDREWS Acetaminophen/Butalbital/Caffeine 1 tab 12/02/18 11:49 12/02/18 13:32 Fioricet PO 1 tab Q4H PRN Administration Headache Docusate Sodium 100 mg 12/01/18 10:00 12/06/18 10:24 Colace PO Not Given BID [facility] Ferrous Sulfate 325 mg 12/01/18 10:00 12/06/18 10:24 Feosol PO Not Given QDAY [facility] Folic Acid 1 mg 12/04/18 12:00 12/06/18 10:25 Folvite PO Not Given QDAY [facility] Sodium Chloride 1,000 mls @ 75 mls/hr 12/01/18 03:00 12/06/18 00:52 Nacl 0.9% 1000 Ml IV 75 mls/hr DIRECT MARTHA Administration Magnesium Hydroxide 30 ml 12/05/18 14:06 12/05/18 14:53 Milk Of Magnesia PO 30 ml Q4H PRN Administration Constipation Medroxyprogesterone Acetate 10 mg 12/03/18 10:00 12/06/18 10:24 Provera PO Not Given TID [facility] Morphine Sulfate 2 mg 12/05/18 14:06 Morphine IV Q4H PRN Pain, Moderate (4-6) Multivitamins 1 each 12/01/18 10:00 12/06/18 10:25 Theragran Tab PO Not Given QDAY MARTHA Nicotine 14 mg 12/01/18 10:00 12/05/18 09:46 Habitrol TD 14 mg QDAY MARTHA Administration Ondansetron HCl 4 mg 12/01/18 02:59 Zofran IV Q8H PRN Nausea And Vomiting Sodium Chloride 10 ml 12/01/18 10:00 12/05/18 21:42 Sodium Chloride Flush Syringe 10 Ml IV 10 ml BID MARTHA Administration Sodium Chloride 10 ml 12/01/18 02:59 12/01/18 22:48 Sodium Chloride Flush Syringe 10 Ml IV 10 ml PRN PRN Administration LINE FLUSH Nutrition/Malnutrition Assess - Dietary Evaluation Nutrition/Malnutrition Findings: Nutrition Notes Start: 12/03/18 12:09 Freq: Status: Active Protocol: Document 12/03/18 12:09 RM (Rec: 12/03/18 12:38 [email or web address]) Nutrition Notes Need for Assessment generated from: MST Initial or Follow up Assessment Other Pertinent Diagnosis Iron deficiency blood loss anemia, Menorrhagia, UTI Current Diet Regular Labs/Tests Reviewed Pertinent Medications Reviewed Height 5 ft 7 in Weight 63.6 kg Usual Body Weight 88.64 kg [place] Body Weight (kg) 61.36 BMI 21.9 Weight change and time frame 28% wt loss X 6 months Subjective/Other Information Screened for malnutrition. 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 Stated that she ate 2 meals daily until she became sick and during the last 5 days ate nothing. Stated that her appetite is improving here and that she eats 50% of her meals but does not like them. Stated that her UBW was 190- 200 lbs last June. Noted temporal and clavicle wasting. 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 No Is Patient Ambulatory and/or Out of Bed Yes REE-([facility]-ambulatory/OOB) [ [id number] [id number]] Calculation Used for Recommendations [facility] Additional Notes Protein Needs: 76-95g (1.2-1. 5g/kg) Fluid Needs: 1 ml/kcal Nutrition Intervention Change Diet Order: Continue current Add Supplement/Snack (indicate name/kcal Ensure Enlive Vanilla 1 daily /protein ) Provides kCal: 350 Provides Protein (gm) 20 Goal #1 Meet at least 75% of calorie and protein needs via PO and ONS intakes Anticipated Discharge Needs: Regular diet Follow-Up By: 12/07/18 Additional Comments Follow for PO and ONS intakes
[2018-12-06 12:01] LABS: Band Neutrophils # (Manual) 0.4 K/mm3; Basophils % (Manual) 0 % (0.0-1.8); Total Cells Counted 100
[2018-12-06 12:02] LABS: Hypochromasia 2+; Tear Drop Cells Few
[2018-12-06 12:05] LABS: Anisocytosis 3+
[2018-12-06 12:06] LABS: Crenated RBC Few; Macrocytosis 1+; Platelet Estimate Consistent w Auto
--- NOTE | 2018-12-06 12:50 | Event Note ---
Date: 12/06/18 Diagnostic radiology performs most CT guided bone marrow biopsies. Already ordered appropriately. Please coordinate with diagnostic radiology.
[2018-12-06] MEDS ORDERED: HYDROmorphone 1 MG/1 ML INJ IV ONE ×2 (12:58→13:20)
[2018-12-06] MEDS ORDERED: ONDANSETRON 4 MG/2 ML INJ IV ONE (12:59)
--- NOTE | 2018-12-06 14:26 | Cat Scan Report ---
CT ABDOMEN AND PELVIS WITHOUT CONTRAST HISTORY: abdominal pain increase lft COMPARISON: None TECHNIQUE: Routine abdominal and pelvic CT exam performed without contrast. Lack of intravenous cont rast limits evaluation of the vascular and solid organs. Note: All CT scans at this location are perf ormed using CT dose reduction employed for ALARA by means of automated exposure control. CONTRAST: None. FINDINGS: CT ABDOMEN: Lung Bases: Clear. Liver: Enlarged with the right lobe measuring 21 cm in length. Normal liver contour and density. No l iver mass. Portal venous system is distended with no evidence of thrombus. Biliary: Contracted gallbladder with no stones. Normal bile ducts. Spleen: Enlarged and measuring 13 cm in maximum diameter. No splenic mass. Pancreas: No significant abnormality. Adrenals: No significant abnormality. Kidneys: No significant abnormality. Urinary calculi. The renal collecting systems and ureters are no ndilated. Lymphatics: No lymphadenopathy. Vasculature: No significant abnormality. Bowel/Peritoneum: No significant abnormality. No free air. No free fluid. Normal appendix. CT PELVIC: : Enlarged fibroid uterus with a dominant 7.3 cm left fundal subserosal fibroid. A 6.3 cm hypodense fibroid. The endometrium is not well-demonstrated. The right ovary is not images. The left ovary is posterior and contains a 4.8 cm cyst. Moderate free fluid in the cul-de-sac. Osseous Structures: No significant abnormality. Additional Findings: None IMPRESSION: 1. Hepatosplenomegaly without identified etiology. 2. Enlarged fibroid uterus. 3. A 4.3 cm cyst of the left ovary. Tubo-ovarian abscess is a consideration. Signer Name: Mikey Sullivan MD Signed: 12/06/2018 2:22 PM Workstation Name: [id number]
--- NOTE | 2018-12-06 14:41 | Cat Scan Report ---
CT-GUIDED BONE MARROW ASPIRATION AND BIOPSY INDICATION : Pancytopenia PROCEDURE: The risks (including but not limited to bleeding and infection) and benefits were explain ed to the patient and informed consent was obtained. All CT examinations performed at this facility utilize dose modulation, iterative reconstruction or weight-based dosing, when appropriate, to reduce radiation dose to as low as reasonably achievable. A time out procedure was performed. The procedu re site was prepped and draped in the usual sterile fashion and lidocaine was used for local anesthes ia. Under CT guidance, the right posterior iliac wing was selected for biopsy. An 11 gauge needle was ad vanced to the posterior margin of the iliac wing, cortex breached, and 4.5 mL bone marrow aspirate ob tained. The needle was then advanced and a bone marrow biopsy was obtained measuring approximately 2 cm. Samples were given directly to the semiconductor development technician who was present during the exam. The patient tolerated the procedure well with no complications. IMPRESSION: Technically successful bone marrow aspirate and biopsy. Signer Name: Leroy Cruz Jr, MD Signed: 12/06/2018 2:36 PM Workstation Name: [id number]
[2018-12-06] MEDS: NICOTINE 14 MG/24 HR PATCH TD SCH (17:45)
[2018-12-06] MEDS: MORPHINE 2 MG/1 ML INJ IV PRN ×2 (19:33→23:39)
[2018-12-07] MEDS: SODIUM CHLORIDE 0.9% 1000 ML 1,000 ML IV SCH (05:23)
--- NOTE | 2018-12-07 07:01 | Hem/Onc Progress Note ---
Assessment and Plan 1. Microcytic anemia, severe, transfusion given, intravenous iron given. 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 2. Symptoms secondary to severe anemia. 3. I will follow the patient during inpatient stay. 12/07 s/p iv iron s/p prbc abn LFTS MVI MCV rising b12 normal low folate - oral started Low platelets is surprising - usually ADOLPH causes high wbc I had myself reviewed the smear - hypochromic red cells - suggestive of ADOLPH b12 inj also - as a few multi segmented neutrophils were seen her cycle is less heavy after issuer intervention BMBX done when pt came her hb was 1 - now it is 4 the question arises if OP follow can be done - will d/w other MDs for possible d/c tomorrow - while pending the prelim BMBX report - Patient Problems (1) Iron deficiency anemia Current Visit: Yes Status: Acute Subjective Date of service: 12/07/18 Principal diagnosis: anemia Interval history: had BMBx Objective - Constitutional Vitals: Last Vital Signs Temp 98.9 F 12/07/18 05:24 Pulse 68 12/07/18 05:24 Resp 18 12/07/18 05:24 BP 109/41 12/07/18 05:24 Pulse Ox 99 12/07/18 05:24 - Labs Lab Results: Laboratory Results - last 24 hr 12/06/18 12/06/18 07:14 10:22 WBC 10.1 RBC 1.96 L Hgb 4.9 L* Hct 15.5 L* MCV 79 MCH 25 L MCHC 32 RDW 31.2 H Plt Count 106 L Add Manual Diff Complete Total Counted 100 Seg Neuts % (Manual) 76.0 H Band Neutrophils % 4.0 Lymphocytes % (Manual) 15.0 Reactive Lymphs % (Man) 0 Monocytes % (Manual) 4.0 Eosinophils % (Manual) 1.0 Basophils % (Manual) 0 Metamyelocytes % 0 Myelocytes % 0 Promyelocytes % 0 Blast Cells % 0 Nucleated RBC % Not Reportable Seg Neutrophils # Man 7.7 Band Neutrophils # 0.4 Lymphocytes # (Manual) 1.5 Abs React Lymphs (Man) 0.0 Monocytes # (Manual) 0.4 Eosinophils # (Manual) 0.1 Basophils # (Manual) 0.0 Metamyelocytes # 0.0 Myelocytes # 0.0 Promyelocytes # 0.0 Blast Cells # 0.0 WBC Morphology Not Reportable Hypersegmented Neuts Not Reportable Hyposegmented Neuts Not Reportable Hypogranular Neuts Not Reportable Smudge Cells Not Reportable Toxic Granulation Not Reportable Toxic Vacuolation Not Reportable Dohle Bodies Not Reportable Pelger-Huet Anomaly Not Reportable Daniel Rods Not Reportable Platelet Estimate Consistent w auto Clumped Platelets Not Reportable Plt Clumps, EDTA Not Reportable Large Platelets Not Reportable Giant Platelets Not Reportable Platelet Satelliting Not Reportable Plt Morphology Comment Not Reportable RBC Morphology Not Reportable Dimorphic RBCs Not Reportable Polychromasia Few Hypochromasia 2+ Poikilocytosis Not Reportable Anisocytosis 3+ Microcytosis Not Reportable Macrocytosis 1+ Spherocytes Not Reportable Pappenheimer Bodies Not Reportable Sickle Cells Not Reportable Target Cells Not Reportable Tear Drop Cells Few Ovalocytes Not Reportable Helmet Cells Not Reportable Chan[place] Bodies Not Reportable [place] Rings Not Reportable Jessica Cells Not Reportable Bite Cells Not Reportable Crenated Cell Few Elliptocytes Not Reportable Acanthocytes (Spur) Not Reportable Rouleaux Not Reportable Hemoglobin C Crystals Not Reportable Schistocytes Not Reportable Malaria parasites Not Reportable Max Bodies Not Reportable Hem Pathologist Commnt No PT 16.2 H INR 1.34 H APTT 31.1 Medications & Allergies - Medications Allergies/Adverse Reactions: Allergies amoxicillin Allergy (Verified 11/30/18 22:58) Hives shellfish Allergy (Uncoded 12/03/18 12:40) Unknown Home Medications: Home Medications Medication Instructions Recorded Confirmed Last Taken Type No Known Home Medications [No 12/01/18 12/01/18 Unknown History Reported Home Medications] Active Medications: Generic Name Dose Route Start Last Admin Trade Name Freq PRN Reason Stop Dose Admin Acetaminophen 650 mg 12/01/18 02:59 12/05/18 09:50 Tylenol PO 650 mg Q4H PRN Administration Pain MILD(1-3)/Fever >100.5/ANDREWS Acetaminophen/Butalbital/Caffeine 1 tab 12/02/18 11:49 12/02/18 13:32 Fioricet PO 1 tab Q4H PRN Administration Headache Docusate Sodium 100 mg 12/01/18 10:00 12/06/18 21:43 Colace PO 100 mg BID MARTHA Administration Ferrous Sulfate 325 mg 12/01/18 10:00 12/06/18 17:46 Feosol PO 325 mg QDAY MARTHA Administration Folic Acid 1 mg 12/04/18 12:00 12/06/18 17:46 Folvite PO 1 mg QDAY MARTHA Administration Sodium Chloride 1,000 mls @ 75 mls/hr 12/01/18 03:00 12/07/18 05:23 Nacl 0.9% 1000 Ml IV 75 mls/hr DIRECT MARTHA Administration Magnesium Hydroxide 30 ml 12/05/18 14:06 12/05/18 14:53 Milk Of Magnesia PO 30 ml Q4H PRN Administration Constipation Medroxyprogesterone Acetate 10 mg 12/03/18 10:00 12/06/18 21:41 Provera PO 10 mg TID MARTHA Administration Morphine Sulfate 2 mg 12/05/18 14:06 12/06/18 23:39 Morphine IV 2 mg Q4H PRN Administration Pain, Moderate (4-6) Multivitamins 1 each 12/01/18 10:00 12/06/18 17:45 Theragran Tab PO 1 each QDAY MARTHA Administration Nicotine 14 mg 12/01/18 10:00 12/06/18 17:45 Habitrol TD 14 mg QDAY MARTHA Administration Ondansetron HCl 4 mg 12/01/18 02:59 Zofran IV Q8H PRN Nausea And Vomiting Sodium Chloride 10 ml 12/01/18 10:00 12/06/18 21:43 Sodium Chloride Flush Syringe 10 Ml IV 10 ml BID MARTHA Administration Sodium Chloride 10 ml 12/01/18 02:59 12/01/18 22:48 Sodium Chloride Flush Syringe 10 Ml IV 10 ml PRN PRN Administration LINE FLUSH
[2018-12-07] MEDS: DOCUSATE SODIUM 100 MG CAP PO SCH ×2 (10:11→21:19)
[2018-12-07] MEDS: FOLIC ACID 1 MG TAB PO SCH (10:11)
[2018-12-07] MEDS: NICOTINE 14 MG/24 HR PATCH TD SCH (10:11)
[2018-12-07] MEDS ORDERED: SODIUM CHLORIDE 0.9% 500 ML 500 ML IV NR (10:11)
[2018-12-07] MEDS: MULTIVITAMINS ,THERAPEUTIC TAB PO SCH (10:11)
[2018-12-07] MEDS: medroxyPROGESTERone ACETATE 5 MG TAB PO SCH ×3 (10:11→20:21)
[2018-12-07] MEDS: FERROUS SULFATE 325 MG TAB PO SCH (10:11)
--- NOTE | 2018-12-07 10:14 | Progress Note ---
Assessment and Plan Assessment and plan: 33-year-old woman who had a previous history of anemia when she was but has not seen a doctor in over 11 years who presents to the hospital with progressive weakness. She states that she has had prolonged heavier periods over the course of 8 months. Her periods progressively got longer in duration from about 5 days to now 14 days in length. She has very heavy bleeding, with lots of blood clots. States that she has had progressive weakness dizziness and she feels like she is easily short of breath, she even feels like she is sloughing, but answers because she feels fatigued in her brain. -Patient found to have profound anemia in the ER with hemoglobin of 1.3 prompting admission Profound iron deficiency chronic blood loss anemia; sp 4 units of blood and i azucena infusion, order another 3 units of blood the following day. 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., they will fup as OP, for possible myomectomy -Transaminitis; likely 2/2 anemia, , asymptomatic, NTD Hyponatremia, patient receiving blood, improved with blood transfusion moderate malnutrition; counseled on improved diet Tobacco abuse/dependence Smoking cessation counseling performed for 10 minutes, nicotine patches when necessary DVT prophylaxis SCDs given profound anemia History Interval history: Review of systems Constitutional: No fevers, no malaise, no joint pains CVS: No chest pain, no orthopnea, no pedal edema GI: No abdominal pain, no diarrhea, no vomiting, no constipation Respiratory: No shortness of breath, no wheezing, no coughing Hospitalist Physical - Physical exam Narrative exam: General.: Appears well, no distress, nontoxic HEENT: Moist mucous membranes, extraocular muscles intact, no lymphadenopathy Neck: supple Cardiac: S1-S2 heard Lungs: clear to auscultation bilaterally Abdomen: soft , nontender, nondistended, bowel sounds positive Extremities: no edema clubbing or cyanosis Skin: no rash or lesions Neurologic: no gross focal deficits Psych: calm, and cooperative - Constitutional Vitals: Temp Pulse Resp BP Pulse Ox 98.9 F 68 18 109/41 99 12/07/18 05:24 12/07/18 05:24 12/07/18 05:24 12/07/18 05:24 12/07/18 05:24 General appearance: Present: no acute distress, well-nourished. Absent: disheveled, malodorous Results - Labs CBC & Chem 7: 12/08/18 10:01 12/08/18 10:01 Labs: Laboratory Last Values WBC 10.1 K/mm3 (4.5-11.0) 12/06/18 07:14 RBC 1.96 M/mm3 (3.65-5.03) L 12/06/18 07:14 Hgb 4.9 gm/dl (10.1-14.3) L* 12/06/18 07:14 Hct 15.5 % (30.3-42.9) L* 12/06/18 07:14 MCV 79 fl (79-97) 12/06/18 07:14 MCH 25 pg (28-32) L 12/06/18 07:14 MCHC 32 % (30-34) 12/06/18 07:14 RDW 31.2 % (13.2-15.2) H 12/06/18 07:14 Plt Count 106 K/mm3 (140-440) L 12/06/18 07:14 Lymph % (Auto) Macaroni Maker 12/01/18 00:32 Bucks % (Auto) Macaroni Maker 12/01/18 00:32 Eos % (Auto) Macaroni Maker 12/01/18 00:32 Baso % (Auto) Macaroni Maker 12/01/18 00:32 Lymph # Macaroni Maker 12/01/18 00:32 Bucks # Macaroni Maker 12/01/18 00:32 Eos # Macaroni Maker 12/01/18 00:32 Baso # Macaroni Maker 12/01/18 00:32 Add Manual Diff Complete 12/06/18 07:14 Total Counted 100 12/06/18 07:14 Seg Neutrophils % Macaroni Maker 12/01/18 00:32 Seg Neuts % (Manual) 76.0 % (40.0-70.0) H 12/06/18 07:14 Band Neutrophils % 4.0 % 12/06/18 07:14 Lymphocytes % (Manual) 15.0 % (13.4-35.0) 12/06/18 07:14 Reactive Lymphs % (Man) 0 % 12/06/18 07:14 Monocytes % (Manual) 4.0 % (0.0-7.3) 12/06/18 07:14 Eosinophils % (Manual) 1.0 % (0.0-4.3) 12/06/18 07:14 Basophils % (Manual) 0 % (0.0-1.8) 12/06/18 07:14 Metamyelocytes % 0 % 12/06/18 07:14 Myelocytes % 0 % 12/06/18 07:14 Promyelocytes % 0 % 12/06/18 07:14 Blast Cells % 0 % 12/06/18 07:14 Nucleated RBC % Not Reportable 12/06/18 07:14 Seg Neutrophils # Macaroni Maker 12/01/18 00:32 Seg Neutrophils # Man 7.7 K/mm3 (1.8-7.7) 12/06/18 07:14 Band Neutrophils # 0.4 K/mm3 12/06/18 07:14 Lymphocytes # (Manual) 1.5 K/mm3 (1.2-5.4) 12/06/18 07:14 Abs React Lymphs (Man) 0.0 K/mm3 12/06/18 07:14 Monocytes # (Manual) 0.4 K/mm3 (0.0-0.8) 12/06/18 07:14 Eosinophils # (Manual) 0.1 K/mm3 (0.0-0.4) 12/06/18 07:14 Basophils # (Manual) 0.0 K/mm3 (0.0-0.1) 12/06/18 07:14 Metamyelocytes # 0.0 K/mm3 12/06/18 07:14 Myelocytes # 0.0 K/mm3 12/06/18 07:14 Promyelocytes # 0.0 K/mm3 12/06/18 07:14 Blast Cells # 0.0 K/mm3 12/06/18 07:14 Pathologist Review 12/03/18 05:47 WBC Morphology Not Reportable 12/06/18 07:14 Hypersegmented Neuts Not Reportable 12/06/18 07:14 Hyposegmented Neuts Not Reportable 12/06/18 07:14 Hypogranular Neuts Not Reportable 12/06/18 07:14 Smudge Cells Not Reportable 12/06/18 07:14 Toxic Granulation Not Reportable 12/06/18 07:14 Toxic Vacuolation Not Reportable 12/06/18 07:14 Dohle Bodies Not Reportable 12/06/18 07:14 Pelger-Huet Anomaly Not Reportable 12/06/18 07:14 Daniel Rods Not Reportable 12/06/18 07:14 Platelet Estimate Consistent w auto 12/06/18 07:14 Clumped Platelets Not Reportable 12/06/18 07:14 Plt Clumps, EDTA Not Reportable 12/06/18 07:14 Large Platelets Not Reportable 12/06/18 07:14 Giant Platelets Not Reportable 12/06/18 07:14 Platelet Satelliting Not Reportable 12/06/18 07:14 Plt Morphology Comment Not Reportable 12/06/18 07:14 RBC Morphology Not Reportable 12/06/18 07:14 Dimorphic RBCs Not Reportable 12/06/18 07:14 Polychromasia Few 12/06/18 07:14 Hypochromasia 2+ 12/06/18 07:14 Poikilocytosis Not Reportable 12/06/18 07:14 Anisocytosis 3+ 12/06/18 07:14 Microcytosis Not Reportable 12/06/18 07:14 Macrocytosis 1+ 12/06/18 07:14 Spherocytes Not Reportable 12/06/18 07:14 Pappenheimer Bodies Not Reportable 12/06/18 07:14 Sickle Cells Not Reportable 12/06/18 07:14 Target Cells Not Reportable 12/06/18 07:14 Tear Drop Cells Few 12/06/18 07:14 Ovalocytes Not Reportable 12/06/18 07:14 Helmet Cells Not Reportable 12/06/18 07:14 Chan-Pax Bodies Not Reportable 12/06/18 07:14 [place] Rings Not Reportable 12/06/18 07:14 Blanchard Cells Not Reportable 12/06/18 07:14 Bite Cells Not Reportable 12/06/18 07:14 Crenated Cell Few 12/06/18 07:14 Elliptocytes Not Reportable 12/06/18 07:14 Acanthocytes (Spur) Not Reportable 12/06/18 07:14 Rouleaux Not Reportable 12/06/18 07:14 Hemoglobin C Crystals Not Reportable 12/06/18 07:14 Schistocytes Not Reportable 12/06/18 07:14 Malaria parasites Not Reportable 12/06/18 07:14 Max Bodies Not Reportable 12/06/18 07:14 Haptoglobin 183 mg/dL (43-212) 12/01/18 08:54 Hem Pathologist Commnt No 12/06/18 07:14 PT 16.2 Sec. (12.2-14.9) H 12/06/18 10:22 INR 1.34 (0.87-1.13) H 12/06/18 10:22 APTT 31.1 Sec. (24.2-36.6) 12/06/18 10:22 Fibrinogen 360 mg/dl (211-480) 12/02/18 12:47 D-Dimer 1421.90 ng/mlDDU (0-234) H 12/02/18 12:47 Sodium 139 mmol/L (137-145) 12/04/18 08:08 Potassium 3.5 mmol/L (3.6-5.0) L 12/04/18 08:08 Chloride 108.4 mmol/L (98-107) H 12/04/18 08:08 Carbon Dioxide 16 mmol/L (22-30) L 12/04/18 08:08 Anion Gap 18 mmol/L 12/04/18 08:08 BUN 4 mg/dL (7-17) L 12/04/18 08:08 Creatinine 0.4 mg/dL (0.7-1.2) L 12/04/18 08:08 Estimated GFR > 60 ml/min 12/04/18 08:08 BUN/Creatinine Ratio 10 % 12/04/18 08:08 Glucose 98 mg/dL (65-100) 12/04/18 08:08 Calcium 8.0 mg/dL (8.4-10.2) L 12/04/18 08:08 Magnesium 3.00 mg/dL (1.7-2.3) H 11/30/18 23:36 Iron 157 ug/dL (37-170) 12/01/18 08:54 Iron 159 ug/dL (37-170) 12/01/18 08:54 TIBC 482 mcg/dL (250-450) H 12/01/18 08:54 TIBC 495 mcg/dL (250-450) H 12/01/18 08:54 % Saturation 32.12 % 12/01/18 08:54 Transferrin 339 mg/dl (192-382) 12/01/18 08:54 Transferrin 352 mg/dl (192-382) 12/01/18 08:54 Ferritin 2.9 ng/mL (13.0-400.0) L 12/01/18 08:54 Total Bilirubin 1.00 mg/dL (0.1-1.2) 12/04/18 08:08 Direct Bilirubin 0.9 mg/dL (0-0.2) H 12/03/18 05:47 Indirect Bilirubin 1.0 mg/dL 12/03/18 05:47 AST 100 units/L (5-40) H 12/04/18 08:08 ALT 175 units/L (7-56) H 12/04/18 08:08 Alkaline Phosphatase 217 units/L (35-129) H 12/04/18 08:08 Total Protein 5.4 g/dL (6.3-8.2) L 12/04/18 08:08 Albumin 2.9 g/dL (3.9-5) L 12/04/18 08:08 Albumin/Globulin Ratio 1.2 % 12/04/18 08:08 Vitamin B12 1048 pg/mL (211-911) H 12/01/18 08:54 Folate 6.86 ng/mL (7.3-26.0) L 12/04/18 05:51 TSH 2.220 mlU/mL (0.270-4.200) 12/01/18 08:54 HCG, Qual Negative (Negative) 12/01/18 01:22 Urine Color Yellow (Yellow) 12/01/18 01:34 Urine Turbidity Slightly-cloudy (Clear) 12/01/18 01:34 Urine pH 5.0 (5.0-7.0) 12/01/18 01:34 Ur Specific [place] 1.012 (1.003-1.030) 12/01/18 01:34 Urine Protein >500 mg/dL (Negative) 12/01/18 01:34 Urine Glucose (UA) Neg mg/dL (Negative) 12/01/18 01:34 Urine Ketones Neg mg/dL (Negative) 12/01/18 01:34 Urine Blood Lg (Negative) 12/01/18 01:34 Urine Nitrite Neg (Negative) 12/01/18 01:34 Urine Bilirubin Neg (Negative) 12/01/18 01:34 Urine Urobilinogen < 2.0 mg/dL (<2.0) 12/01/18 01:34 Ur Leukocyte Esterase Neg (Negative) 12/01/18 01:34 Urine WBC (Auto) 13.0 /HPF (0.0-6.0) H 12/01/18 01:34 Urine RBC (Auto) 61.0 /HPF (0.0-6.0) 12/01/18 01:34 U Epithel Cells (Auto) 2.0 /HPF (0-13.0) 12/01/18 01:34 Urine Bacteria (Auto) 2+ /HPF (Negative) 12/01/18 01:34 Urine Mucus Few /HPF 12/01/18 01:34 Urine HCG, Qual Negative (Negative) 12/01/18 01:34 Blood Type B POSITIVE 12/01/18 Unknown Antibody Screen Negative 12/01/18 Unknown Crossmatch See Detail 12/01/18 Unknown Active Medications - Current Medications Current Medications: Generic Name Dose Route Start Last Admin Trade Name Freq PRN Reason Stop Dose Admin Acetaminophen 650 mg 12/01/18 02:59 12/05/18 09:50 Tylenol PO 650 mg Q4H PRN Administration Pain MILD(1-3)/Fever >100.5/ANDREWS Acetaminophen/Butalbital/Caffeine 1 tab 12/02/18 11:49 12/02/18 13:32 Fioricet PO 1 tab Q4H PRN Administration Headache Docusate Sodium 100 mg 12/01/18 10:00 12/07/18 10:11 Colace PO 100 mg BID MARTHA Administration Ferrous Sulfate 325 mg 12/01/18 10:00 12/07/18 10:11 Feosol PO 325 mg QDAY MARTHA Administration Folic Acid 1 mg 12/04/18 12:00 12/07/18 10:11 Folvite PO 1 mg QDAY MARTHA Administration Sodium Chloride 1,000 mls @ 75 mls/hr 12/01/18 03:00 12/07/18 05:23 Nacl 0.9% 1000 Ml IV 75 mls/hr DIRECT MARTHA Administration Sodium Chloride 500 mls @ 0 mls/hr 12/07/18 10:11 Nacl 0.9% 500 Ml IV 12/07/18 10:12 ONCE ONE As Directed Magnesium Hydroxide 30 ml 12/05/18 14:06 12/05/18 14:53 Milk Of Magnesia PO 30 ml Q4H PRN Administration Constipation Medroxyprogesterone Acetate 10 mg 12/03/18 10:00 12/07/18 10:11 Provera PO 10 mg TID MARTHA Administration Morphine Sulfate 2 mg 12/05/18 14:06 12/06/18 23:39 Morphine IV 2 mg Q4H PRN Administration Pain, Moderate (4-6) Multivitamins 1 each 12/01/18 10:00 12/07/18 10:11 Theragran Tab PO 1 each QDAY MARTHA Administration Nicotine 14 mg 12/01/18 10:00 12/07/18 10:11 Habitrol TD 14 mg QDAY MARTHA Administration Ondansetron HCl 4 mg 12/01/18 02:59 Zofran IV Q8H PRN Nausea And Vomiting Sodium Chloride 10 ml 12/01/18 10:00 12/07/18 10:12 Sodium Chloride Flush Syringe 10 Ml IV 10 ml BID MARTHA Administration Sodium Chloride 10 ml 12/01/18 02:59 12/01/18 22:48 Sodium Chloride Flush Syringe 10 Ml IV 10 ml PRN PRN Administration LINE FLUSH Nutrition/Malnutrition Assess - Dietary Evaluation Nutrition/Malnutrition Findings: Nutrition Notes Start: 12/03/18 12:09 Freq: Status: Active Protocol: Document 12/03/18 12:09 (Rec: 12/03/18 12:38 [email or web address]) Nutrition Notes Need for Assessment generated from: [facility] Initial or Follow up Assessment Other Pertinent Diagnosis Iron deficiency blood loss anemia, Menorrhagia, UTI Current Diet Regular Labs/Tests Reviewed Pertinent Medications Reviewed Height 5 ft 7 in Weight 63.6 kg Usual Body Weight 88.64 kg [place] Body Weight (kg) 61.36 BMI 21.9 Weight change and time frame 28% wt loss X 6 months Subjective/Other Information Screened for malnutrition. 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 Stated that she ate 2 meals daily until she became sick and during the last 5 days ate nothing. Stated that her appetite is improving here and that she eats 50% of her meals but does not like them. Stated that her UBW was 190- 200 lbs last June. Noted temporal and clavicle wasting. 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 No Is Patient Ambulatory and/or Out of Bed Yes REE-([facility]-ambulatory/OOB) [ 1772.719 [id number]] Calculation Used for Recommendations [facility] Additional Notes Protein Needs: 76-95g (1.2-1. 5g/kg) Fluid Needs: 1 ml/kcal Nutrition Intervention Change Diet Order: Continue current Add Supplement/Snack (indicate name/kcal Ensure Enlive Vanilla 1 daily /protein ) Provides kCal: 350 Provides Protein (gm) 20 Goal #1 Meet at least 75% of calorie and protein needs via PO and ONS intakes Anticipated Discharge Needs: Regular diet Follow-Up By: 12/07/18 Additional Comments Follow for PO and ONS intakes
[2018-12-07] MEDS: MORPHINE 2 MG/1 ML INJ IV PRN (12:02)
[2018-12-07] MEDS: ACETAMINOPHEN 325 MG TAB PO PRN (17:57)
[2018-12-08] MEDS ORDERED: SODIUM FERRIC GLUCON/SUCRO 125 MG in SODIUM CHLORIDE 0.9% 100 ML IV ONE (06:48)
--- NOTE | 2018-12-08 07:43 | Hem/Onc Progress Note ---
Assessment and Plan 1. Microcytic anemia, severe, transfusion given, intravenous iron given. 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 2. Symptoms secondary to severe anemia. 3. I will follow the patient during inpatient stay. 12/08 s/p iv iron s/p prbc abn LFTS MVI MCV rising b12 normal low folate - oral started Low platelets is surprising - usually ADOLPH causes high wbc I had myself reviewed the smear - hypochromic red cells - suggestive of ADOLPH b12 inj also - as a few multi segmented neutrophils were seen her cycle is less heavy after community center coordinator intervention BMBX done - prelim path neg her admission hb was 1 and now it is almost 5 pt is ambulating OP follow up an option d/w dr sanchez when pt came her hb was 1 - now it is 4 the question arises if OP follow can be done - will d/w other MDs for possible d/c tomorrow - while pending the prelim BMBX report - Patient Problems (1) Iron deficiency anemia Current Visit: Yes Status: Acute Subjective Date of service: 12/08/18 Principal diagnosis: anemia Interval history: s/p BMBX - prelim path - nil acute Objective - Exam Narrative Exam: Pain - none General appearance - comfortable Performance status limited self care Eyes - no icterus, ENT - no bleeding LNs cervical not palpable Neck - no LN Respiratory Normal Breath sounds - CTA CVS S1 S2 + Extremities no calf tenderness General GI Soft Rectal deferred female - deferred Skin warm Musculoskeletal moves extremities Neurologically awake - oriented - Constitutional Vitals: Last Vital Signs Temp 99.2 F 12/08/18 06:46 Pulse 58 L 12/08/18 06:46 Resp 18 12/08/18 06:46 BP 128/61 12/08/18 06:46 Pulse Ox 100 12/08/18 06:46 - Labs Lab Results: Laboratory Results - last 24 hr 12/01/18 12/01/18 12/07/18 08:54 Unknown 10:37 RBC Folic Acid >1000 Blood Type B POSITIVE Antibody Screen Negative Crossmatch See Detail See Detail Medications & Allergies - Medications Allergies/Adverse Reactions: Allergies amoxicillin Allergy (Verified 11/30/18 22:58) Hives shellfish Allergy (Uncoded 12/03/18 12:40) Unknown Home Medications: Home Medications Medication Instructions Recorded Confirmed Last Taken Type No Known Home Medications [No 12/01/18 12/01/18 Unknown History Reported Home Medications] Active Medications: Generic Name Dose Route Start Last Admin Trade Name Freq PRN Reason Stop Dose Admin Acetaminophen 650 mg 12/01/18 02:59 12/07/18 17:57 Tylenol PO 650 mg Q4H PRN Administration Pain MILD(1-3)/Fever >100.5/ANDREWS Acetaminophen/Butalbital/Caffeine 1 tab 12/02/18 11:49 12/02/18 13:32 Fioricet PO 1 tab Q4H PRN Administration Headache Cyanocobalamin 1,000 mcg 12/08/18 10:00 Vitamin B-12 PO QDAY MARTHA Docusate Sodium 100 mg 12/01/18 10:00 12/07/18 21:19 Colace PO 100 mg BID MARTHA Administration Ferrous Sulfate 325 mg 12/01/18 10:00 12/07/18 10:11 Feosol PO 325 mg QDAY MARTHA Administration Folic Acid 1 mg 12/04/18 12:00 12/07/18 10:11 Folvite PO 1 mg QDAY MARTHA Administration Sodium Chloride 1,000 mls @ 75 mls/hr 12/01/18 03:00 12/07/18 05:23 Nacl 0.9% 1000 Ml IV 75 mls/hr DIRECT MARTHA Administration Sodium Chloride 500 mls @ 0 mls/hr 12/07/18 10:11 12/07/18 16:19 Nacl 0.9% 500 Ml IV 12/08/18 10:10 50 mls/hr ONCE NR Administration As Directed Ferric Sodium Gluconate 110 mls @ 100 mls/hr 12/08/18 06:48 Complex 125 mg/ Sodium IV 12/08/18 07:53 Chloride ONCE ONE Magnesium Hydroxide 30 ml 12/05/18 14:06 12/05/18 14:53 Milk Of Magnesia PO 30 ml Q4H PRN Administration Constipation Medroxyprogesterone Acetate 10 mg 12/03/18 10:00 12/07/18 20:21 Provera PO 10 mg TID MARTHA Administration Morphine Sulfate 2 mg 12/05/18 14:06 12/07/18 12:02 Morphine IV 2 mg Q4H PRN Administration Pain, Moderate (4-6) Multivitamins 1 each 12/01/18 10:00 12/07/18 10:11 Theragran Tab PO 1 each QDAY MARTHA Administration Nicotine 14 mg 12/01/18 10:00 12/07/18 10:11 Habitrol TD 14 mg QDAY MARTHA Administration Ondansetron HCl 4 mg 12/01/18 02:59 Zofran IV Q8H PRN Nausea And Vomiting Sodium Chloride 10 ml 12/01/18 10:00 12/07/18 21:20 Sodium Chloride Flush Syringe 10 Ml IV 10 ml BID MARTHA Administration Sodium Chloride 10 ml 12/01/18 02:59 12/01/18 22:48 Sodium Chloride Flush Syringe 10 Ml IV 10 ml PRN PRN Administration LINE FLUSH
[2018-12-08] MEDS: FERROUS SULFATE 325 MG TAB PO SCH (09:27)
[2018-12-08] MEDS: medroxyPROGESTERone ACETATE 5 MG TAB PO SCH (09:27)
[2018-12-08] MEDS: FOLIC ACID 1 MG TAB PO SCH (09:27)
[2018-12-08] MEDS: MULTIVITAMINS ,THERAPEUTIC TAB PO SCH (09:28)
[2018-12-08] MEDS: NICOTINE 14 MG/24 HR PATCH TD SCH (09:28)
[2018-12-08] MEDS: DOCUSATE SODIUM 100 MG CAP PO SCH (09:28)
[2018-12-08] MEDS: SODIUM CHLORIDE 0.9% 1000 ML 1,000 ML IV SCH (09:29)
[2018-12-08] MEDS: ACETAMINOPHEN 325 MG TAB PO PRN (09:44)
[2018-12-08] MEDS ORDERED: CYANOCOBALAMIN (VIT B-12) 1000 MCG TAB PO SCH (10:00)
[2018-12-08 10:13] LABS: Hematocrit 24.8 % (30.3-42.9); Hemoglobin 8.2 gm/dl (10.1-14.3); Mean Corpuscular HGB Conc 33 % (30-34); Mean Corpuscular Volume 84 fl (79-97); Platelet Count 122 K/mm3 (140-440); Red Blood Count 2.96 M/mm3 (3.65-5.03)
[2018-12-08 10:17] LABS: Red Cell Distribution Width 26.5 % (13.2-15.2)
[2018-12-08 10:35] LABS: Alanine Aminotransferase 66 units/L (7-56); Albumin 2.9 g/dL (3.9-5); BUN/Creatinine Ratio 10; Blood Urea Nitrogen 4 mg/dL (7-17); Calcium 8.5 mg/dL (8.4-10.2); Hemolysis Index 3
--- NOTE | 2018-12-08 10:44 | Discharge Summary ---
Providers - Providers Date of Admission: 12/01/18 02:59 Attending physician: BRICE RODRÍGUEZ MD 12/01/18 02:57 Consult to Physician [CONS] Routine Comment: Consulting Provider: CHARITY RODRIGUEZ Physician Instructions: Reason For Exam: ?? fibroids 12/01/18 02:59 Consult to Physician [CONS] Routine Comment: Consulting Provider: MARY WATERMAN Physician Instructions: Reason For Exam: anemia 12/06/18 06:49 Consult to Interventional Radiology [CONS] Routine Consulting Provider: RADHA FLOWERS Reason For Exam: low platelets - not responding - today cbc pending Place consult to:: DR. SCHAFER Notified:: DR. SCHAFER Primary care physician: FANCY WIRE DRAWER Hospitalization Condition: Stable Hospital course: 33-year-old woman who had a previous history of anemia when she was but has not seen a doctor in over 11 years who presents to the hospital with progressive weakness. She states that she has had prolonged heavier periods over the course of 8 months. Her periods progressively got longer in duration from about 5 days to now 14 days in length. She has very heavy bleeding, with lots of blood clots. States that she has had progressive weakness dizziness and she feels like she is easily short of breath, she even feels like she is sloughing, but answers because she feels fatigued in her brain. -Patient found to have profound anemia in the ER with hemoglobin of 1.3 prompting admission Profound iron deficiency chronic blood loss anemia; received 7 units of blood. Improvements in hemoglobin. sp BM biopsy, on folate supplement for slightly decreased serum folate. 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., they will fup as OP, for possible myomectomy -Transaminitis; likely 2/2 anemia, , asymptomatic, NTD Hyponatremia, , improved with blood transfusion Tobacco abuse/dependence Smoking cessation counseling performed for 10 minutes, nicotine patches when necessary DVT prophylaxis SCDs given profound anemia Disposition: - TO HOME OR SELFCARE Time spent for discharge: 33 mins Core Measure Documentation - Palliative Care Palliative Care/ Comfort Measures: Not Applicable - Core Measures Any of the following diagnoses?: none Exam - Constitutional Vitals: Temp Pulse Resp BP Pulse Ox 98.9 F 63 18 129/71 100 12/08/18 07:15 12/08/18 07:15 12/08/18 07:15 12/08/18 07:15 12/08/18 07:15 General appearance: Present: no acute distress, well-nourished - EENT Eyes: Present: PERRL ENT: hearing intact, clear oral mucosa - Neck Neck: Present: supple, normal ROM - Respiratory Respiratory effort: normal Respiratory: bilateral: CTA - Cardiovascular Heart Sounds: Present: S1 & S2. Absent: rub, click - Extremities Extremities: pulses symmetrical, No edema Peripheral Pulses: within normal limits - Abdominal General gastrointestinal: Present: soft, non-tender, non-distended, normal bowel sounds Female genitourinary: Present: normal - Integumentary Integumentary: Present: clear, warm, dry - Musculoskeletal Musculoskeletal: gait normal, strength equal bilaterally - Psychiatric Psychiatric: appropriate mood/affect, intact judgment & insight - Neurologic Neurologic: CNII-XII intact, moves all extremities Plan Follow up with: PRIMARY CARE,MD [Primary Care Provider] - 3-5 Days Prescriptions: Ferrous Sulfate [Feosol 325 MG tab] 325 mg PO QDAY #30 tablet Folic Acid [Folvite] 1 mg PO QDAY #30 tablet Nicotine [Habitrol] 14 mg TD QDAY #30 patch Multivitamin Tab [Multiple Vitamin TAB (Theragran)] 1 each PO QDAY #30 tablet medroxyPROGESTERone ACETATE [Provera] 10 mg PO TID #90 tablet
[2018-12-08 12:14] VITALS: BP 118/60
[2018-12-08 15:59] LABS: Basophils % (Manual) 0 % (0.0-1.8); Eosinophils % (Manual) 0 % (0.0-4.3); Total Cells Counted 100
[2018-12-08 16:00] LABS: Anisocytosis 3+; Crenated RBC Few; Hypochromasia 2+; Platelet Estimate Consistent w Auto; Tear Drop Cells Rare
[2018-12-20 11:30] LABS: Hemoglobin A2 Prime SEE SCANNED RESULT; Hemoglobin Barts SEE SCANNED RESULT; Hemoglobin E SEE SCANNED RESULT; Hemoglobin G SEE SCANNED RESULT; Hemoglobin Lepore SEE SCANNED RESULT; Hemoglobin O-Arab SEE SCANNED RESULT; IEF Confirm SEE SCANNED RESULT; Interpretation SEE SCANNED RESULT; Sickle Solubility Test SEE SCANNED RESULT
== END 2018-12-08 14:10 | disposition home or self-care (01) | DRG 809 ==
LOC: ED 22:51 → 3A 12-01 02:59
PROVIDERS: ADMIT Internal Medicine; ATTEND Internal Medicine
PROC: 30233N1 Transfusion of Nonautologous Red Blood Cells into Peripheral Vein, Percutaneous Approach (ICD-10-PCS; 2018-12-01)
PROC: 07DR3ZX Extraction of Iliac Bone Marrow, Percutaneous Approach, Diagnostic (ICD-10-PCS; principal; 2018-12-06)
PROC: 079T3ZX Drainage of Bone Marrow, Percutaneous Approach, Diagnostic (ICD-10-PCS; 2018-12-06)
DX: D61.818 Other pancytopenia (principal); E87.1 Hypo-osmolality and hyponatremia; E44.0 Moderate protein-calorie malnutrition; D25.9 Leiomyoma of uterus, unspecified; D62 Acute posthemorrhagic anemia; I95.9 Hypotension, unspecified; N92.0 Excessive and frequent menstruation with regular cycle; F17.210 Nicotine dependence, cigarettes, uncomplicated; E87.6 Hypokalemia; Z68.22 Body mass index [BMI] 22.0-22.9, adult; Z91.14 Patient's other noncompliance with medication regimen
CPT/HCPCS: 36415; 38222; 71045; 74176; 76700; 80048; 80053; 80076; 81001; 81025; 82607; 82728; 82747; 83010; 83550; 83735; 84443; 84466; 84703; 85007; 85014; 85018; 85025; 85027; 85097; 85379; 85384; 85610; 85730; 86850; 86900; 86901; 86920; 87086; 88161; 88184; 88185; 88230; 88291; 88305; 88311; 88313; 93005; 93010; 93975; 96365; 96375; 99406; G0378; J1170; J1956; J2270; J2405; J2916; J3420; J7030; J7040; P9016

== ENCOUNTER 2018-12-11 00:36 | Emergency (ER) | payer OTHER ==
[2018-12-11] MEDS ORDERED: diphenhydrAMINE 50 MG/ML VIAL IV ONE (01:59)
[2018-12-11] MEDS ORDERED: KETOROLAC 30 MG/1 ML INJ IV ONE (01:59)
[2018-12-11] MEDS ORDERED: METOCLOPRAMIDE 10 MG/2 ML INJ IV ONE (01:59)
--- NOTE | 2018-12-11 02:53 | Emergency Department Report ---
ED General Adult HPI - General Chief complaint: Extremity Problem,Nontraumatic Stated complaint: HAND/FOOT SWELLING/EMESIS Source: patient Mode of arrival: Ambulatory Limitations: No Limitations - History of Present Illness Initial comments: Patient is a 33-year-old -[place] female with a history of chronic menorrhagia due to uterine fibroids, chronic iron deficiency anemia with recent transfusion in the hospital presents to the ED with acute onset persistent severe diffuse headache with nausea and vomiting for the last 6 hours despite taking ibuprofen and Tylenol at home. Patient also complains of worsening bilateral pedal edema with pain for the last 3 days after being discharged from the hospital, having stayed in the hospital for about one week due to iron deficiency anemia and worsening anemia with chronic blood loss through menorrhagia and uterine fibroids. Patient states that she has had 2 episodes of nausea and vomiting although her headache is severe and persistent. Patient denies syncope, dizziness, lightheadedness, chest pain, shortness of breath, abdominal pain, traumatic injury, fever or chills, cough, seizures or loss of consciousness. MD Complaint: bilateral pedal edema; headache with nausea and vomiting -: Sudden, days(s) (3) Location: head, lower extremity Radiation: non-radiation Severity scale (0 -10): 10 Quality: aching, sharp Consistency: constant Improves with: none Worsens with: none Associated Symptoms: denies other symptoms, headaches, loss of appetite, nausea/vomiting. denies: confusion, chest pain, cough, diaphoresis, fever/chills, malaise, rash, seizure, shortness of breath, syncope, other Treatments Prior to Arrival: NSAID - Related Data Previous Rx's Medication Instructions Recorded Last Taken Type Ferrous Sulfate [Feosol 325 MG tab] 325 mg PO QDAY #30 tablet 12/08/18 Unknown Rx Folic Acid [Folvite] 1 mg PO QDAY #30 tablet 12/08/18 Unknown Rx Multivitamin Tab [Multiple Vitamin 1 each PO QDAY #30 tablet 12/08/18 Unknown Rx TAB (Theragran)] Nicotine [Habitrol] 14 mg TD QDAY #30 patch 12/08/18 Unknown Rx medroxyPROGESTERone ACETATE 10 mg PO TID #90 tablet 12/08/18 Unknown Rx [Provera] Butalb/Acetamin/Caff 50-325-40 1 tab PO Q6HR PRN #12 tab 12/11/18 Unknown Rx [Fioricet 50-325-40] Cyclobenzaprine [Flexeril] 10 mg PO Q8H PRN #15 tablet 12/11/18 Unknown Rx Promethazine [Phenergan] 25 mg PO Q6HR PRN #20 tab 12/11/18 Unknown Rx Allergies Allergy/AdvReac Type Severity Reaction Status Date / Time amoxicillin Allergy Hives Verified 11/30/18 22:58 shellfish Allergy Unknown Uncoded 12/03/18 12:40 ED Review of Systems ROS: Stated complaint: HAND/FOOT SWELLING/EMESIS Other details as noted in HPI Constitutional: denies: chills, fever Eyes: denies: eye pain, eye discharge, vision change ENT: denies: ear pain, throat pain Respiratory: denies: cough, shortness of breath, wheezing Cardiovascular: denies: chest pain, palpitations Endocrine: no symptoms reported Gastrointestinal: nausea, vomiting. denies: abdominal pain, diarrhea Genitourinary: denies: urgency, dysuria, discharge Musculoskeletal: joint swelling (Bilateral feet swelling and pain), arthralgia (Bilateral feet swelling and pain), myalgia. denies: back pain Skin: denies: rash, lesions Neurological: headache. denies: weakness, paresthesias Psychiatric: denies: anxiety, depression Hematological/Lymphatic: denies: easy bleeding, easy bruising ED Past Medical Hx - Past Medical History Previous Medical History?: Yes Hx Asthma: No Hx COPD: No Additional medical history: anemia - Surgical History Past Surgical History?: Yes Additional Surgical History: c sec - Social History Smoking Status: Current Every Day Smoker Substance Use Type: Alcohol - Medications Home Medications: Home Medications Medication Instructions Recorded Confirmed Last Taken Type Ferrous Sulfate [Feosol 325 MG tab] 325 mg PO QDAY #30 tablet 12/08/18 Unknown Rx Folic Acid [Folvite] 1 mg PO QDAY #30 tablet 12/08/18 Unknown Rx Multivitamin Tab [Multiple Vitamin 1 each PO QDAY #30 tablet 12/08/18 Unknown Rx TAB (Theragran)] Nicotine [Habitrol] 14 mg TD QDAY #30 patch 12/08/18 Unknown Rx medroxyPROGESTERone ACETATE 10 mg PO TID #90 tablet 12/08/18 Unknown Rx [Provera] Butalb/Acetamin/Caff 50-325-40 1 tab PO Q6HR PRN #12 tab 12/11/18 Unknown Rx [Fioricet 50-325-40] Cyclobenzaprine [Flexeril] 10 mg PO Q8H PRN #15 tablet 12/11/18 Unknown Rx Promethazine [Phenergan] 25 mg PO Q6HR PRN #20 tab 12/11/18 Unknown Rx ED Physical Exam - General Limitations: No Limitations General appearance: alert, in no apparent distress - Head Head exam: Present: atraumatic, normocephalic, normal inspection - Eye Eye exam: Present: normal appearance, PERRL, EOMI. Absent: scleral icterus, conjunctival injection, nystagmus, periorbital swelling, periorbital tenderness Pupils: Present: normal accommodation - ENT ENT exam: Present: normal exam, normal orophraynx, mucous membranes moist, TM's normal bilaterally, normal external ear exam - Neck Neck exam: Present: normal inspection, full ROM - Respiratory Respiratory exam: Present: normal lung sounds bilaterally. Absent: respiratory distress, wheezes, rales, chest wall tenderness, accessory muscle use, decreased breath sounds - Cardiovascular Cardiovascular Exam: Present: regular rate, normal rhythm, normal heart sounds. Absent: systolic murmur, diastolic murmur, rubs, gallop - GI/Abdominal GI/Abdominal exam: Present: soft, normal bowel sounds. Absent: tenderness, guarding, hyperactive bowel sounds, hypoactive bowel sounds, organomegaly, mass - Extremities Exam Extremities exam: Present: normal inspection, full ROM, tenderness (bilateral foot pain), pedal edema (bilateral 2+ pedal edema), joint swelling ( and swelling bilateral foot pain and swelling) - Back Exam Back exam: Present: normal inspection, full ROM. Absent: tenderness, muscle spasm, paraspinal tenderness - Neurological Exam Neurological exam: Present: alert, oriented X3, CN II-XII intact, normal gait, reflexes normal - Psychiatric Psychiatric exam: Present: normal affect, normal mood - Skin Skin exam: Present: warm, dry, intact, normal color. Absent: rash ED Course Vital Signs 12/11/18 03:39 Pulse Rate 51 L Respiratory 18 Rate Blood Pressure 146/81 [Left] O2 Sat by Pulse 97 Oximetry - Reevaluation(s) Reevaluation #1: 12/11/18 02:54 This is a 33-year-old -[place] female with a history of chronic iron deficiency anemia and anemia due to menorrhagia presents to the ED with acute onset persistent severe headache, nausea and vomiting and worsening bilateral pedal edema for 3 days after being discharged from a 1 week hospital stay for blood transfusions. In the ED, patient is alert and oriented 3 and is not in distress. Basic labs were drawn and patient treated for headache with Reglan, Benadryl and Toradol. On reevaluation, patient's headache and nausea and vomiting resolved. Patient was advised to elevate her feet above her heart whenever laying down to sleep. Lab test results are all nonactionable and unremarkable. Headache has resolved as well as nausea and vomiting with treatment. Patient advised to follow-up with her primary care physician in 5-7 days for reevaluation. Patient was also advised to return to the ED immediately if symptoms get worse. 12/11/18 04:04 ED Medical Decision Making - Lab Data Result diagrams: 12/11/18 02:51 12/11/18 02:51 - Medical Decision Making This is a 33-year-old -[place] female with a history of chronic iron deficiency anemia and anemia due to menorrhagia presents to the ED with acute onset persistent severe headache, nausea and vomiting and worsening bilateral pedal edema for 3 days after being discharged from a 1 week hospital stay for blood transfusions. In the ED, patient is alert and oriented 3 and is not in distress. Basic labs were drawn and patient treated for headache with Reglan, Benadryl and Toradol. On reevaluation, patient's headache and nausea and vomiting resolved. Patient was advised to elevate her feet above her heart whenever laying down to sleep. Lab test results are all nonactionable and unremarkable. Headache has resolved as well as nausea and vomiting with treatment. Patient advised to follow-up with her primary care physician in 5-7 days for reevaluation. Patient was also advised to return to the ED immediately if symptoms get worse. - Differential Diagnosis Tension headache, Vomiting; Pedal edema Critical care attestation.: If time is entered above; I have spent that time in minutes in the direct care of this critically ill patient, excluding procedure time. ED Disposition Clinical Impression: Nausea and vomiting in adult, Pedal edema Acute tension-type headache Qualifiers: Intractability: not intractable Qualified Code(s): G44.209 - Tension-type headache, unspecified, not intractable Disposition: DC-01 TO HOME OR SELFCARE Is pt being admited?: No Does the pt Need Aspirin: No Condition: Stable Instructions: Acute Headache (ED), Acute Nausea and Vomiting (ED) Additional Instructions: Take medications with food, drink plenty of fluids and follow-up with your primary care physician in 5-7 days for reevaluation. Return to the ED immediately if symptoms get worse. Prescriptions: Butalb/Acetamin/Caff 50-325-40 [Fioricet 50-325-40] 1 tab PO Q6HR PRN #12 tab PRN Reason: Headache Cyclobenzaprine [Flexeril] 10 mg PO Q8H PRN #15 tablet PRN Reason: Muscle Spasm Promethazine [Phenergan] 25 mg PO Q6HR PRN #20 tab PRN Reason: Nausea Referrals: DEVANTE JOHNSONSIBLEY MD DONELL [Primary Care Provider] - 3-5 Days Time of Disposition: 04:06 Print Language: FRENCH
[2018-12-11 03:11] LABS: Alanine Aminotransferase 49 units/L (7-56); Albumin 3.1 g/dL (3.9-5); BUN/Creatinine Ratio 10; Blood Urea Nitrogen 4 mg/dL (7-17); Calcium 8.7 mg/dL (8.4-10.2); Hemolysis Index 4
[2018-12-11 03:39] VITALS: BP 146/81
[2018-12-11 03:50] LABS: Hemoglobin 10.1 gm/dl (10.1-14.3); Mean Corpuscular HGB Conc 33 % (30-34); Mean Corpuscular Volume 84 fl (79-97); Red Blood Count 3.69 M/mm3 (3.65-5.03)
[2018-12-11 03:59] LABS: Red Cell Distribution Width 27.7 % (13.2-15.2)
[2018-12-11 07:02] LABS: Anisocytosis 1+; Basophils % (Manual) 0 % (0.0-1.8); Total Cells Counted 100
[2018-12-11 07:03] LABS: Hypochromasia Few; Platelet Estimate Consistent w Auto
[2018-12-11 07:24] LABS: Platelet Count 178 K/mm3 (140-440)
== END 2018-12-11 04:41 | disposition home or self-care (01) ==
LOC: ED 00:36
DX: G44.209 Tension-type headache, unspecified, not intractable (principal); R11.2 Nausea with vomiting, unspecified; R60.9 Edema, unspecified; F17.200 Nicotine dependence, unspecified, uncomplicated
CPT/HCPCS: 36415; 80053; 85007; 85025; 96374; 96375; 99283; J1200; J1885; J2765